=== PATIENT | male | born 1940 | race Caucasian/White ===

== ENCOUNTER 2017-01-26 03:58 | Emergency (ER) | payer MEDICARE, BC ==
[2017-01-26] MEDS ORDERED: Pantoprazole 40 MG Vial IVPUSH ONE (04:14)
[2017-01-26] MEDS ORDERED: Lidocaine 1% 30 ML SDV INJECT ONE (04:16)
[2017-01-26] MEDS ORDERED: Bacitracin Oint 1 GM U/D Packet TOP ONE (04:16)
[2017-01-26] MEDS ORDERED: Sodium Chloride 0.9% 1,000 ML IV ONE (04:16)
--- NOTE | 2017-01-26 04:24 | EDM.PDOC ---
ED HPI GENERAL MEDICAL PROBLEM - General Stated Complaint: IN BY AMBULANCE Time Seen by Provider: 01/26/17 04:00 Source of Information: Reports: Patient, EMS, Family History Limitations: Reports: No limitations - History of Present Illness INITIAL COMMENTS - FREE TEXT/NARRATIVE: This 76 yo male patient was brought to the ED by [facility] due to an episode of syncope. [place] of [place], vomited blood, and passed out on the floor. The patient has a history of GIST tumors, but has not had any episodes of GI bleeding in the past. When the patient had his syncope episode, the patient hit the left side of his head and has a laceration to the left eye. The patient's reports the patient was unresponsive after the fall. The patient reports his hemoglobin was checked yesterday and was 11.2. Onset: today, sudden Duration: Constant Location: Reports: head, face Quality: Reports: Ache, Dull Severity: moderate Improves with: Reports: None Worsens with: Reports: None Context: Reports: Other Associated Symptoms: Reports: nausea/vomiting, syncope - Related Data Allergies Allergy/AdvReac Type Severity Reaction Status Date / Time No Known Allergies Allergy Verified 01/26/17 04:31 Home Meds: Home Meds Acetaminophen [Tylenol] 2 tab PO Q6H PRN 11/26/15 [History] Amoxicillin [Amoxil] 1 cap PO ASDIRECTED 11/26/15 [History] Aspirin [Halfprin] 1 tab PO DAILY 11/26/15 [History] Carvedilol [Coreg] 12.5 mg PO BIDMEALS 11/26/15 [History] Imatinib [Gleevec] 2 tab PO BID 11/26/15 [History] Melatonin/Pyridoxine HCl (B6) [Melatonin 10 mg Tablet] 1 tab PO ASDIRECTED PRN 11/26/15 [History] Multivitamin [Multivitamins] 1 tab PO DAILY 11/26/15 [History] Pantoprazole [Protonix] 1 cap PO BID 11/26/15 [History] Psyllium [Metamucil] 30 ml PO BID 11/26/15 [History] Furosemide 20 mg PO ASDIRECTED 09/29/16 [History] Nitroglycerin [Nitrostat] 0.4 mg SL ASDIRECTED PRN 10/20/16 [History] Past Medical History HEENT History: Reports: Cataract, Impaired vision Other HEENT History: WEARS CORRECTIVE LENSES Cardiovascular History: Reports: Cardiomyopathy, High cholesterol, Hypertension Respiratory History: Reports: Sleep apnea, Other (see below) Other Respiratory History: PULMONARY NODULE Gastrointestinal History: Reports: Other (see below) Other Gastrointestinal History: GIST (gastrointestinal stromal tumor); Genitourinary History: Reports: BPH Musculoskeletal History: Reports: Arthritis Neurological History: Reports: None Psychiatric History: Reports: None Endocrine/Metabolic History: Reports: None Hematologic History: Reports: None Immunologic History: Reports: None Oncologic (Cancer) History: Reports: Esophageal, Other (see below) Other Oncologic History: gastric Dermatologic History: Reports: None - Past Surgical History HEENT Surgical History: Reports: Cataract surgery, Tonsillectomy GI Surgical History: Reports: Colonoscopy, EGD, Other (see below) Other GI Surgeries/Procedures: PARTIAL GASTRECTOMY FOR GIST Neurological Surgical History: Reports: C-Spine, Lumbar spine Other Neurological Surgeries/Procedures: C-SPINE C5-6; LUMBAR SPINE SURGERY L4-5 Musculoskeletal Surgical History: Reports: Carpal tunnel Other Musculoskeletal Surgeries/Procedures:: CARPAL TUNNEL RELEASE RIGHT Social & Family History - Tobacco Use Smoking Status *Q: Former Smoker Years of Tobacco use: 10 Used Tobacco, but Quit: Yes Month Tobacco Last Used: 03/07/1969 - Caffeine Use Caffeine Use: Reports: Coffee - Alcohol Use Days Per Week of Alcohol Use: 2 Number of Drinks Per Day: 2 Total Drinks Per Week: 4 - Recreational Drug Use Recreational Drug Use: No ED ROS GENERAL - Review of Systems Review Of Systems: ROS reveals no pertinent complaints other than HPI. ED EXAM, GENERAL - Physical Exam Exam: See Below Exam Limited By: No limitations General Appearance: alert, WD/WN, moderate distress, thin Eye Exam: bilateral eye: EOMI, PERRL Ears: normal external exam, normal canal, hearing grossly normal, normal TMs Nose: normal inspection, normal mucosa, no blood Throat/Mouth: Normal inspection, Normal lips, Normal teeth, Normal gums, Normal oropharynx, Normal voice, No airway compromise Head: other (laceration to the left lateral eye) Neck: normal inspection, supple, non-tender, full range of motion Respiratory/Chest: no respiratory distress, lungs clear, normal breath sounds, no accessory muscle use, chest non-tender Cardiovascular: normal peripheral pulses, regular rate, rhythm, no edema, no gallop, no JVD, no murmur, no rub GI/Abdominal: normal bowel sounds, soft, non tender, no organomegaly, no distention, no abnormal bruit, no mass (Male) Exam: Deferred Rectal (Males) Exam: Deferred Back Exam: normal inspection, full range of motion, NT Extremities: normal inspection, normal range of motion, non-tender, normal capillary refill, no pedal edema Neurological: alert, oriented, CN II-XII intact, normal cognition, normal gait, normal reflexes, no motor/sensory deficits Psychiatric: normal affect, normal mood Skin Exam: Warm, Dry, Intact, Normal color, No rash Lymphatic: no adenopathy ED GENERAL MEDICAL PROCEDURES - Laceration/Wound Repair Left Lateral Face Lac/wound length in cm: 2.0 Appearance: subcutaneous Distal NVT: neuro & vascular intact Anesthetic type: local Local anesthesia - Lidocaine (Xylocaine): 1% plain Local anesthetic volume: 4cc Skin prep: chlorhexidine (hibiciens) Exploration/Debridement/Repair: wound explored, in a bloodless field, explored to base, no foreign material found Closed with: sutures Suture size: 4-0 # of sutures: 7 Suture type: prolene, interrupted, simple Drain placement: No Sterile dressing applied: nurse Tetanus status addressed: Yes Complications: No Course - Vital Signs Last Recorded V/S: Last Vital Signs Temp 35.1 C L 01/26/17 03:58 Pulse 83 01/26/17 03:58 Resp 15 01/26/17 03:58 BP 115/59 L 01/26/17 03:58 Pulse Ox 94 L 01/26/17 03:58 - Orders/Labs/Meds Orders: Active Orders 24 hr Category Date Time Status EKG Documentation Completion [RC] URGENT Care 01/26/17 04:08 Ordered OCCULT BLD DIAGNOS Stat Lab 01/26/17 04:09 Ordered RED BLOOD CELLS LP [BBK] Stat Lab 01/26/17 04:27 Ordered TYPE AND SCREEN [BBK] Stat Lab 01/26/17 04:27 Ordered Sodium Chloride 0.9% [Normal Saline] 1,000 ml Med 01/26/17 04:16 Ordered IV .BOLUS Medication Orders Sodium Chloride (Normal Saline) 1,000 mls @ 500 mls/hr IV .BOLUS ONE Stop: 01/26/17 06:15 Last Admin: 01/26/17 04:24 Dose: 500 mls/hr Labs: Laboratory Tests 01/26/17 01/26/17 01/26/17 Range/Units 04:20 04:20 04:20 WBC 9.0 (5.0-10.0) 10^3/uL RBC 2.24 L (4.6-6.2) 10^6/uL Hgb 8.2 L (14.0-18.0) g/dL Hct 24.3 L (40.0-54.0) % MCV 108.5 H (80-100) fL MCH 36.6 H (27.0-34.0) pg MCHC 33.7 (33.0-35.0) g/dL Plt Count 224 (150-450) 10^3/uL Neut % (Auto) 75.3 H (42.2-75.2) % Lymph % (Auto) 15.5 L (20.5-50.1) % [place] % (Auto) 6.3 (2-8) % Eos % (Auto) 2.7 (1.0-3.0) % Baso % (Auto) 0.2 (0.0-1.0) % PT 11.2 (9.0-12.0) SEC INR 1.1 (0.9-1.2) Sodium 139 (135-145) mmol/L Potassium 4.3 (3.6-5.0) mmol/L Chloride 109 (101-111) mmol/L Carbon Dioxide 24.0 (21.0-31.0) mmol/L Anion Gap 10.3 BUN 24 H (7-18) mg/dL Creatinine 1.2 (0.6-1.3) mg/dL Est Cr Clr Drug Dosing TNP Estimated GFR (MDRD) 59 BUN/Creatinine Ratio 20.00 Glucose 164 H (74-105) mg/dL Calcium 7.7 L (8.4-10.2) mg/dl Total Bilirubin 0.6 (0.2-1.0) mg/dL AST 30 (10-42) IU/L ALT 20 (10-60) IU/L Alkaline Phosphatase 89 (42-121) IU/L Troponin I 0.02 (0.00-0.02) ng/ml Total Protein 4.9 L (6.7-8.2) g/dl Albumin 2.8 L (3.2-5.5) g/dl Globulin 2.1 Albumin/Globulin Ratio 1.33 Meds: Medications Generic Name Dose Route Start Last Admin Trade Name Margi PRN Reason Stop Dose Admin Sodium Chloride 1,000 mls @ 500 mls/hr 01/26/17 04:16 01/26/17 04:24 Normal Saline IV 01/26/17 06:15 500 mls/hr .BOLUS ONE Administration Discontinued Medications Generic Name Dose Route Start Last Admin Trade Name Margi PRN Reason Stop Dose Admin Bacitracin 1 dose 01/26/17 04:16 Bacitracin Oint 1 Gm TOP 01/26/17 04:17 ONETIME ONE Lidocaine HCl 30 ml 01/26/17 04:16 Xylocaine-Mpf 1% INJECT 01/26/17 04:17 ONETIME ONE Pantoprazole Sodium 80 mg 01/26/17 04:14 01/26/17 04:25 Protonix Iv IVPUSH 01/26/17 04:15 80 mg .BOLUS ONE Administration Departure - Departure Time of Disposition: 05:13 Disposition: DC/Tfer to Acute Hospital 02 Condition: poor Clinical Impression: GI bleed Qualifiers: GI bleed type/associated pathology: gastrointestinal hemorrhage with hematemesis Qualified Code(s): K92.0 - Hematemesis Forms: Interfacility Transfer EMTALA Care Plan Goals: Discussed the history, examination, lab, EKG and current cares with Dr. Hoang ( ED Provider with [facility] in [place]). Dr. Hoang accepted the patient for continued evaluation and further management. The patient will be transported by [facility]. - My Orders Last 24 Hours: My Active Orders 01/26/17 04:08 EKG Documentation Completion [RC] URGENT 01/26/17 04:09 OCCULT BLD DIAGNOS Stat 01/26/17 04:16 Sodium Chloride 0.9% [Normal Saline] 1,000 ml IV .BOLUS 01/26/17 04:27 RED BLOOD CELLS LP [BBK] Stat TYPE AND SCREEN [BBK] Stat - Assessment/Plan Last 24 Hours: My Active Orders 01/26/17 04:08 EKG Documentation Completion [RC] URGENT 01/26/17 04:09 OCCULT BLD DIAGNOS Stat 01/26/17 04:16 Sodium Chloride 0.9% [Normal Saline] 1,000 ml IV .BOLUS 01/26/17 04:27 RED BLOOD CELLS LP [BBK] Stat TYPE AND SCREEN [BBK] Stat
[2017-01-26 04:53] LABS: CHLORIDE,CL 109 mmol/L (101-111); SODIUM,NA 139 mmol/L (135-145)
--- NOTE | 2017-01-27 07:27 | EKG ---
01/26/2017- JENNIFER BLISS - EKG per my reading, shows sinus rhythm at a rate of [address] depression[address] [facility] /[id number]
[2017-01-27 09:24] VITALS: BP 133/62
== END 2017-01-26 06:06 ==
LOC: DL.ED 03:58
DX: K92.0 Hematemesis (principal); S01.81XA Laceration without foreign body of other part of head, initial encounter; E78.00 Pure hypercholesterolemia, unspecified; I10 Essential (primary) hypertension; M19.90 Unspecified osteoarthritis, unspecified site; Z98.49 Cataract extraction status, unspecified eye; Z98.890 Other specified postprocedural states; Z79.82 Long term (current) use of aspirin; Z79.899 Other long term (current) drug therapy; Z87.891 Personal history of nicotine dependence
CPT/HCPCS: 12011; 36415; 36430; 70450; 80053; 84484; 85025; 85610; 86850; 86900; 86901; 86920; 86922; 93005; 93010; 96360; 99284; 99285; C9113; J7030; P9016

== ENCOUNTER 2017-03-27 06:33 | Emergency (ER) | payer MEDICARE, BC ==
[2017-03-27 06:36] VITALS: BP 187/83
--- NOTE | 2017-03-27 06:43 | EDM.PDOC ---
<Delbert Seals M - Last Filed: 03/27/17 06:33> ED HPI GENERAL MEDICAL PROBLEM - General Chief Complaint: Neurological Problem Stated Complaint: COMING BY AMBULANCE Time Seen by Provider: 03/27/17 06:30 Source of Information: Reports: Patient, Family History Limitations: Reports: No limitations - History of Present Illness INITIAL COMMENTS - FREE TEXT/NARRATIVE: This 76 yo male patient was brought to the ED by [facility] due to increased confusion. The patient reports he is more confused this morning than normal for him. The patient's reports the patient was normal last night and was also normal at about 0230 this morning. When the patient got up this morning, he asked his when she changed sides of the bed and could not remember what he did yesterday. The patient has been seen at the [facility] for a GIST tumor. According to the patient's , the patient was in the [facility] in January 2017 and was advised that he had a blood clot. The patient had a filter placed, but was not started on any anticoagulant medications. The patient has recently started a new cancer medication which has caused his blood pressure to increase. 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 The patient was able to answer most questions, but took an increased amount of time to respond to questions. Onset: today Onset Date: 03/27/17 Onset Time: 15:00 Duration: Constant, Other Location: Reports: other Quality: Reports: Other Severity: moderate Improves with: Reports: None Worsens with: Reports: None Associated Symptoms: Reports: other - Related Data Allergies Allergy/AdvReac Type Severity Reaction Status Date / Time No Known Allergies Allergy Verified 03/27/17 06:36 Home Meds: Home Meds Acetaminophen [Tylenol] 2 tab PO Q6H PRN 11/26/15 [History] Aspirin [Halfprin] 1 tab PO DAILY 11/26/15 [History] Carvedilol [Coreg] 12.5 mg PO BIDMEALS 11/26/15 [History] Melatonin/Pyridoxine HCl (B6) [Melatonin 10 mg Tablet] 1 tab PO ASDIRECTED PRN 11/26/15 [History] Multivitamin [Multivitamins] 1 tab PO DAILY 11/26/15 [History] Pantoprazole [ProTONIX] 1 cap PO BID 11/26/15 [History] Psyllium [Metamucil] 30 ml PO BID 11/26/15 [History] Furosemide 20 mg PO 09/29/16 [History] Nitroglycerin [Nitrostat] 0.4 mg SL ASDIRECTED PRN 10/20/16 [History] SUNItinib Malate [Sutent] 50 mg PO DAILY 03/27/17 [History] Past Medical History HEENT History: Reports: Cataract, Impaired vision Other HEENT History: WEARS CORRECTIVE LENSES Cardiovascular History: Reports: Cardiomyopathy, High cholesterol, Hypertension Respiratory History: Reports: Sleep apnea, Other (see below) Other Respiratory History: PULMONARY NODULE Gastrointestinal History: Reports: Other (see below) Other Gastrointestinal History: GIST (gastrointestinal stromal tumor); Genitourinary History: Reports: BPH Musculoskeletal History: Reports: Arthritis Neurological History: Reports: None Psychiatric History: Reports: None Endocrine/Metabolic History: Reports: None Hematologic History: Reports: None Immunologic History: Reports: None Oncologic (Cancer) History: Reports: Esophageal, Other (see below) Other Oncologic History: gastric Dermatologic History: Reports: None - Past Surgical History HEENT Surgical History: Reports: Cataract surgery, Tonsillectomy GI Surgical History: Reports: Colonoscopy, EGD, Other (see below) Other GI Surgeries/Procedures: PARTIAL GASTRECTOMY FOR GIST Neurological Surgical History: Reports: C-Spine, Lumbar spine Other Neurological Surgeries/Procedures: C-SPINE C5-6; LUMBAR SPINE SURGERY L4-5 Musculoskeletal Surgical History: Reports: Carpal tunnel Other Musculoskeletal Surgeries/Procedures:: CARPAL TUNNEL RELEASE RIGHT Social & Family History - Family History Family Medical History: Noncontributory - Tobacco Use Smoking Status *Q: Former Smoker Years of Tobacco use: 10 Used Tobacco, but Quit: Yes Month Tobacco Last Used: 03/07/1969 Second Hand Smoke Exposure: Yes - Caffeine Use Caffeine Use: Reports: Coffee - Alcohol Use Days Per Week of Alcohol Use: 2 Number of Drinks Per Day: 2 Total Drinks Per Week: 4 - Recreational Drug Use Recreational Drug Use: No ED ROS GENERAL - Review of Systems Review Of Systems: ROS reveals no pertinent complaints other than HPI. ED EXAM, GENERAL - Physical Exam Exam: See Below Exam Limited By: No limitations General Appearance: alert, WD/WN, mild distress Eye Exam: bilateral eye: EOMI, normal inspection, PERRL Ears: normal external exam, normal canal, hearing grossly normal, normal TMs Nose: normal inspection, normal mucosa, no blood Throat/Mouth: Normal inspection, Normal lips, Normal teeth, Normal gums, Normal oropharynx, Normal voice, No airway compromise Head: atraumatic, normocephalic Neck: normal inspection, supple, non-tender, full range of motion Respiratory/Chest: no respiratory distress, lungs clear, normal breath sounds, no accessory muscle use, chest non-tender Cardiovascular: normal peripheral pulses, regular rate, rhythm, no edema, no gallop, no JVD, no murmur, no rub GI/Abdominal: normal bowel sounds, soft, non tender, no organomegaly, no distention, no abnormal bruit, no mass (Male) Exam: Deferred Rectal (Males) Exam: Deferred Back Exam: normal inspection, full range of motion, NT Extremities: normal inspection, normal range of motion, non-tender, normal capillary refill, no pedal edema Neurological: alert, oriented, CN II-XII intact, no motor/sensory deficits, confused, slow to respond Psychiatric: normal affect, normal mood Skin Exam: Warm, Dry, Intact, Normal color, No rash Lymphatic: no adenopathy Course - Vital Signs Last Recorded V/S: Last Vital Signs Temp 36.3 C 03/27/17 06:33 Pulse 56 L 03/27/17 06:33 Resp 20 03/27/17 06:33 BP 187/83 H 03/27/17 06:33 Pulse Ox 99 03/27/17 06:33 - Orders/Labs/Meds Orders: Active Orders 24 hr Category Date Time Status EKG Documentation Completion [RC] URGENT Care 03/27/17 06:33 Active Labs: Laboratory Tests 03/27/17 03/27/17 Range/Units 06:40 06:40 WBC 5.2 (5.0-10.0) 10^3/uL RBC 4.25 L (4.6-6.2) 10^6/uL Hgb 13.2 L (14.0-18.0) g/dL Hct 39.7 L (40.0-54.0) % MCV 93.4 (80-100) fL MCH 31.1 (27.0-34.0) pg MCHC 33.2 (33.0-35.0) g/dL Plt Count 269 (150-450) 10^3/uL Neut % (Auto) 47.4 (42.2-75.2) % Lymph % (Auto) 39.6 (20.5-50.1) % [place] % (Auto) 8.7 H (2-8) % Eos % (Auto) 3.7 H (1.0-3.0) % Baso % (Auto) 0.6 (0.0-1.0) % Sodium 139 (135-145) mmol/L Potassium 4.1 (3.6-5.0) mmol/L Chloride 105 (101-111) mmol/L Carbon Dioxide 28.0 (21.0-31.0) mmol/L Anion Gap 10.1 BUN 16 (7-18) mg/dL Creatinine 1.2 (0.6-1.3) mg/dL Est Cr Clr Drug Dosing TNP Estimated GFR (MDRD) 59 BUN/Creatinine Ratio 13.33 Glucose 107 H (74-105) mg/dL Calcium 8.8 (8.4-10.2) mg/dl Total Bilirubin 1.0 (0.2-1.0) mg/dL AST 26 (10-42) IU/L ALT 20 (10-60) IU/L Alkaline Phosphatase 89 (42-121) IU/L Troponin I 0.02 (0.00-0.02) ng/ml Total Protein 6.5 L (6.7-8.2) g/dl Albumin 3.8 (3.2-5.5) g/dl Globulin 2.7 Albumin/Globulin Ratio 1.41 Departure - Departure Disposition: DC/Tfer to [facility] 02 Clinical Impression: Hemorrhagic cerebrovascular accident (CVA), 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, Hypertension, uncontrolled, Bradycardia , History of gastrointestinal stromal tumor (GIST) Forms: ED Department Discharge, Interfacility Transfer EMTALA <Mac Olvera - Last Filed: 03/27/17 07:52> ED HPI GENERAL MEDICAL PROBLEM - General Source of Information: Reports: EMS, EMS notes reviewed, RN, RN notes reviewed EKG INTERPRETATION EKG Date: 03/27/17 Rhythm: other (SR) Rate (beats/min): 53 [place]: normal P-wave: present QRS: normal ST-T: normal QT: normal Comparison: NA - no prior EKG Course - Radiology Interpretation Free Text/Narrative:: CT Head: Possible evolving infarction in the posterior left parietal and occipital region; 4.3mm hyperdensity in the subdural space in the right frontal and parietal regions may represent an acute subdural hematoma; findings not present on CT Head from 01/2017, per Rad. report. CT Results Date: 03/27/17 - Re-Assessments/Exams Free Text/Narrative Re-Assessment/Exam: 03/27/17 07:[address] Pond via [employer], she advises to have the pt transferred without further intervention locally to the service of the hospitalist and she will consult and involve neurosurgery if needed. Departure - Departure Time of Disposition: 07:40 Condition: critical
[2017-03-27 07:06] LABS: CHLORIDE,CL 105 mmol/L (101-111); SODIUM,NA 139 mmol/L (135-145)
--- NOTE | 2017-04-17 14:28 | EKG ---
03/27/2017 - JENNIFER BLISS - EKG per my reading, shows sinus rhythm at a rate of 53. [facility] /[id number]
== END 2017-03-27 08:05 ==
LOC: DL.ED 06:33
DX: I63.9 Cerebral infarction, unspecified (principal); I10 Essential (primary) hypertension; R00.1 Bradycardia, unspecified; E78.00 Pure hypercholesterolemia, unspecified; N40.0 Benign prostatic hyperplasia without lower urinary tract symptoms; M19.90 Unspecified osteoarthritis, unspecified site; Z88.2 Allergy status to sulfonamides; Z79.899 Other long term (current) drug therapy; Z90.49 Acquired absence of other specified parts of digestive tract; Z98.890 Other specified postprocedural states; Z98.49 Cataract extraction status, unspecified eye
CPT/HCPCS: 36415; 70450; 80053; 84484; 85025; 93005; 93010; 99284; 99285

== ENCOUNTER 2019-03-26 11:02 | Emergency (ER) | payer MEDICARE, BC ==
[2019-03-26 11:08] VITALS: BP 124/85
--- NOTE | 2019-03-26 11:15 | EDM.PDOC ---
ED HPI GENERAL MEDICAL PROBLEM - General Chief Complaint: General Stated Complaint: AMBULANCE Time Seen by Provider: 03/26/19 11:15 Source of Information: Reports: Patient, Family, Old Records, RN, RN Notes Reviewed History Limitations: Reports: No Limitations - History of Present Illness INITIAL COMMENTS - FREE TEXT/NARRATIVE: Pt arrives from a local pharmacy by ambulance with c/o an near syncopal episode while waiting for a prescription. 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 He denies chest pain, edema, or orthopnea. Pt reports progressively worsening shortness of breath, fatigue, and generalized weakness. He denies bloody stools, black, tarry, or melanotic stools. He was recently admitted at [facility] and states that his Coreg was increased from 6.25mg BID to 25mg BID. He denies any other recent medication changes. Duration: Chronic, Recurring - Related Data Allergies Allergy/AdvReac Type Severity Reaction Status Date / Time No Known Allergies Allergy Verified 03/26/19 11:03 Home Meds: Home Meds Acetaminophen [Tylenol] 2 tab PO Q6H PRN 11/26/15 [History] Aspirin [Halfprin] 1 tab PO DAILY 11/26/15 [History] Carvedilol [Coreg] 25 mg PO BIDMEALS 11/26/15 [History] Melatonin/Pyridoxine HCl (B6) [Melatonin 10 mg Tablet] 1 tab PO ASDIRECTED PRN 11/26/15 [History] Multivitamin [Multivitamins] 1 tab PO DAILY 11/26/15 [History] Pantoprazole [ProTONIX] 1 cap PO DAILY 11/26/15 [History] Psyllium [Metamucil] 30 ml PO BID 11/26/15 [History] Furosemide 40 mg PO DAILY 09/29/16 [History] Nitroglycerin [Nitrostat] 0.4 mg SL ASDIRECTED PRN 10/20/16 [History] SUNItinib Malate [Sutent] 50 mg PO DAILY 03/27/17 [History] ALPRAZolam [Xanax] 0.25 mg PO TID PRN 03/26/19 [History] Potassium Chloride [Klor-Con 10] 10 meq PO DAILY 03/26/19 [History] Sennosides [Senna] 8.6 mg PO BID 03/26/19 [History] Warfarin [Coumadin] 2.5 mg PO ASDIRECTED 03/26/19 [History] atorvaSTATin Calcium [Lipitor] 40 mg PO DAILY 03/26/19 [History] Past Medical History HEENT History: Reports: Cataract, Impaired Vision Other HEENT History: WEARS CORRECTIVE LENSES Cardiovascular History: Reports: Afib, Cardiomyopathy, Heart Failure, High Cholesterol, Hypertension, SOB on Exertion Respiratory History: Reports: Sleep Apnea, Other (See Below) Other Respiratory History: periods fast breathing happen randomly throughout the day and night. Gastrointestinal History: Reports: Other (See Below) Other Gastrointestinal History: GIST (gastrointestinal stromal tumor); Genitourinary History: Reports: BPH Musculoskeletal History: Reports: Arthritis Neurological History: Reports: None Psychiatric History: Reports: None Endocrine/Metabolic History: Reports: None Hematologic History: Reports: None Immunologic History: Reports: None Oncologic (Cancer) History: Reports: Esophageal, Other (See Below) Other Oncologic History: Gist Dermatologic History: Reports: None - Past Surgical History HEENT Surgical History: Reports: Cataract Surgery, Tonsillectomy GI Surgical History: Reports: Colonoscopy, EGD, Other (See Below) Neurological Surgical History: Reports: C-Spine, Lumbar Spine Musculoskeletal Surgical History: Reports: Carpal Tunnel Social & Family History - Family History Family Medical History: Noncontributory - Tobacco Use Smoking Status *Q: Never Smoker - Caffeine Use Caffeine Use: Reports: Coffee - Recreational Drug Use Recreational Drug Use: No - Living Situation & Occupation Living situation: Reports: Occupation: Retired ED ROS GENERAL - Review of Systems Review Of Systems: ROS reveals no pertinent complaints other than HPI. ED EXAM, GENERAL - Physical Exam Exam: See Below Exam Limited By: No Limitations General Appearance: Alert, No Apparent Distress, Anxious, Other (Chronically ill , anxious, elderly male.) Eye Exam: Bilateral Eye: EOMI, Normal Inspection, PERRL Ears: Hearing Grossly Normal Nose: Normal Inspection, Normal Mucosa, No Blood Throat/Mouth: Normal Inspection, Normal Lips, Normal Teeth, Normal Gums, Normal Oropharynx, Normal Voice, No Airway Compromise Head: Atraumatic, Normocephalic Neck: Normal Inspection, Supple, Non-Tender, Full Range of Motion. No: Lymphadenopathy (L), Lymphadenopathy (R) Respiratory/Chest: No Respiratory Distress, Lungs Clear, Normal Breath Sounds, No Accessory Muscle Use, Chest Non-Tender Cardiovascular: Irregularly Irregular GI/Abdominal: Normal Bowel Sounds, Soft, Non-Tender, No Organomegaly, No Distention, No Abnormal Bruit (Male) Exam: Deferred Rectal (Males) Exam: Deferred Back Exam: Normal Inspection Extremities: Normal Inspection, Normal Range of Motion, Non-Tender, Normal Capillary Refill, No Pedal Edema Neurological: Alert, Oriented, CN II-XII Intact, Normal Cognition, No Motor/ Sensory Deficits Psychiatric: Anxious Skin Exam: Warm, Dry, Intact, No Rash, Pallor EKG INTERPRETATION EKG Date: 03/26/19 Time: 11:44 Rhythm: A-Fib Rate (Beats/Min): 95 [place]: RAD-Right [place] Deviation (borderline) P-Wave: Absent QRS: Normal ST-T: Other (nonspecific repol. abnormality) QT: Normal Comparison: No Change Course - Vital Signs Last Recorded V/S: Last Vital Signs Temp 35.8 C 03/26/19 11:05 Pulse 92 03/26/19 11:05 Resp 20 03/26/19 11:05 BP 124/85 03/26/19 11:05 Pulse Ox 100 03/26/19 11:05 Orthostatic Blood Pressure [ 90/64 Standing] Orthostatic Blood Pressure [ 95/67 Sitting] Orthostatic Blood Pressure [ 111/72 Supine] Pt symptomatic with severe lightheadedness. BP then briefly dropped to 80/55. - Orders/Labs/Meds Orders: Active Orders 24 hr Category Date Time Status EKG 12 Lead [EKG Documentation Completion] [RC] STAT Care 03/26/19 11:42 Active Orthostatic Vital Signs [RC] ASDIRECTED Care 03/26/19 11:43 Active Labs: Laboratory Tests 03/26/19 03/26/19 03/26/19 Range/Units 11:46 11:46 11:46 WBC 9.6 (5.0-10.0) 10^3/uL RBC 4.59 L (4.6-6.2) 10^6/uL Hgb 13.9 L (14.0-18.0) g/dL Hct 42.0 (40.0-54.0) % MCV 91.5 (80-100) fL MCH 30.3 (27.0-34.0) pg MCHC 33.1 (33.0-35.0) g/dL Plt Count 345 D (150-450) 10^3/uL Neut % (Auto) 66.4 (42.2-75.2) % Lymph % (Auto) 21.6 (20.5-50.1) % [place] % (Auto) 9.9 H (2-8) % Eos % (Auto) 1.8 (1.0-3.0) % Baso % (Auto) 0.3 (0.0-1.0) % PT 17.9 H D (9.0-12.0) SEC INR 1.8 H (0.9-1.2) Sodium 136 (135-145) mmol/L Potassium 4.5 (3.6-5.0) mmol/L Chloride 100 L (101-111) mmol/L Carbon Dioxide 23.0 (21.0-31.0) mmol/L Anion Gap 17.5 BUN 23 H (7-18) mg/dL Creatinine 1.3 (0.6-1.3) mg/dL Est Cr Clr Drug Dosing 49.88 mL/min Estimated GFR (MDRD) 53 BUN/Creatinine Ratio 17.69 Glucose 102 (74-105) mg/dL Calcium 8.8 (8.4-10.2) mg/dl Total Bilirubin 2.3 H (0.2-1.0) mg/dL AST 40 (10-42) IU/L ALT 39 (10-60) IU/L Alkaline Phosphatase 102 (42-121) IU/L Troponin I 0.04 H* (0.00-0.02) ng/ml B-Natriuretic Peptide 1240 H (0-100) pg/ml Total Protein 7.2 (6.7-8.2) g/dl Albumin 3.6 (3.2-5.5) g/dl Globulin 3.6 Albumin/Globulin Ratio 1.00 - Radiology Interpretation Free Text/Narrative:: Chest XR: no acute process per Rad. report. - Re-Assessments/Exams Free Text/Narrative Re-Assessment/Exam: 03/26/19 13:15 Pt refuses to be transferred to [facility] due to a "bad past experience". Pt requests transfer only to [facility] in [place]. Departure - Departure Time of Disposition: 13:10 Disposition: DC/Tfer to Acute Hospital 02 Condition: Serious Clinical Impression: CHF, Congestive heart failure, Elevated troponin, Orthostatic hypotension, History of malignant gastrointestinal stromal tumor (GIST), Generalized weakness , Anxiety about health Syncope Qualifiers: Syncope type: unspecified Qualified Code(s): R55 - Syncope and collapse - Discharge Information *PRESCRIPTION DRUG MONITORING PROGRAM REVIEWED*: No *COPY OF PRESCRIPTION DRUG MONITORING REPORT IN PATIENT MAGDALENA: No Forms: ED Department Discharge, Interfacility Transfer EMTALA - My Orders Last 24 Hours: My Active Orders 03/26/19 11:42 EKG 12 Lead [EKG Documentation Completion] [RC] STAT 03/26/19 11:43 Orthostatic Vital Signs [RC] ASDIRECTED - Assessment/Plan Last 24 Hours: My Active Orders 03/26/19 11:42 EKG 12 Lead [EKG Documentation Completion] [RC] STAT 03/26/19 11:43 Orthostatic Vital Signs [RC] ASDIRECTED
[2019-03-26 12:16] LABS: ANION GAP 17.5
--- NOTE | 2019-03-26 12:35 | CR ---
Clinical history: 78-year-old male shortness of breath and near syncopal episode. Interpretation: *No acute new cardiopulmonary abnormality since comparable AP film 29 September 2016. Chronic mild left ventricular configuration space with external loss prevention research engineer leads. No cephalization of vascular flow, new alveolar edema or dependent pleural fluid accumulation. No new lung mass, hilar lymphadenopathy or focal lobar pneumonia. Orthopedic replacement right shoulder. No pneumothorax.
== END 2019-03-26 14:05 ==
LOC: DL.ED 11:02
DX: I95.1 Orthostatic hypotension (principal); I48.91 Unspecified atrial fibrillation; I11.0 Hypertensive heart disease with heart failure; I50.9 Heart failure, unspecified; R79.89 Other specified abnormal findings of blood chemistry; R53.1 Weakness; F41.9 Anxiety disorder, unspecified; E78.00 Pure hypercholesterolemia, unspecified; Z79.82 Long term (current) use of aspirin; Z79.899 Other long term (current) drug therapy; Z85.09 Personal history of malignant neoplasm of other digestive organs
CPT/HCPCS: 36415; 71045; 80053; 83880; 84484; 85025; 85610; 93005; 99285-25

== ENCOUNTER 2019-04-11 07:41 | Emergency (ER) | payer MEDICARE, BC ==
[2019-04-11 07:48] VITALS: BP 133/96; PULSE 135
--- NOTE | 2019-04-11 08:10 | EDM.PDOC ---
ED HPI GENERAL MEDICAL PROBLEM - General Chief Complaint: General Stated Complaint: AMBULNACE Time Seen by Provider: 04/11/19 07:50 Source of Information: Reports: Patient, Family () History Limitations: Reports: No Limitations - History of Present Illness INITIAL COMMENTS - FREE TEXT/NARRATIVE: This 78 yo male patient was brought to the ED by [facility] due to increased weakness and increased shortness of breath. The patient reports he has had increased weakness since he got out of the hospital in [place]. The patient has a history of a GIST Tumor ( reports the tumor is inoperable), A. fib, CHF, HTN and anxiety. The patient's reports the specialists in [place] report that there is nothing they can do for his weakness or difficulties breathing. The patient reports that he is currently too weak to eat. The patient reports he has been able to get up, but unable to do anything else throughout the day. The patient was seen in the [facility] on Tuesday by Rayn Nash and was started on a different Anxiety medication. Onset: Gradual Duration: Week(s):, Constant, Getting Worse Location: Reports: Generalized Quality: Reports: Other Severity: Severe Improves with: Reports: None Worsens with: Reports: None Context: Reports: Other Associated Symptoms: Reports: Shortness of Breath, Weakness - Related Data Allergies Allergy/AdvReac Type Severity Reaction Status Date / Time No Known Allergies Allergy Verified 03/26/19 11:03 Home Meds: Home Meds Acetaminophen [Tylenol] 2 tab PO Q6H PRN 11/26/15 [History] Aspirin [Halfprin] 1 tab PO DAILY 11/26/15 [History] Carvedilol [Coreg] 25 mg PO BIDMEALS 11/26/15 [History] Melatonin/Pyridoxine HCl (B6) [Melatonin 10 mg Tablet] 1 tab PO ASDIRECTED PRN 11/26/15 [History] Multivitamin [Multivitamins] 1 tab PO DAILY 11/26/15 [History] Pantoprazole [ProTONIX] 1 cap PO DAILY 11/26/15 [History] Psyllium [Metamucil] 30 ml PO BID 11/26/15 [History] Furosemide 40 mg PO DAILY 09/29/16 [History] Nitroglycerin [Nitrostat] 0.4 mg SL ASDIRECTED PRN 10/20/16 [History] SUNItinib Malate [Sutent] 50 mg PO DAILY 03/27/17 [History] ALPRAZolam [Xanax] 0.25 mg PO TID PRN 03/26/19 [History] Potassium Chloride [Klor-Con 10] 10 meq PO DAILY 03/26/19 [History] Sennosides [Senna] 8.6 mg PO BID 03/26/19 [History] Warfarin [Coumadin] 2.5 mg PO ASDIRECTED 03/26/19 [History] atorvaSTATin Calcium [Lipitor] 40 mg PO DAILY 03/26/19 [History] Past Medical History HEENT History: Reports: Cataract, Impaired Vision Other HEENT History: WEARS CORRECTIVE LENSES Cardiovascular History: Reports: Afib, Cardiomyopathy, Heart Failure, High Cholesterol, Hypertension, SOB on Exertion Respiratory History: Reports: Sleep Apnea, Other (See Below) Other Respiratory History: periods fast breathing happen randomly throughout the day and night. Gastrointestinal History: Reports: Other (See Below) Other Gastrointestinal History: GIST (gastrointestinal stromal tumor); Genitourinary History: Reports: BPH Musculoskeletal History: Reports: Arthritis Neurological History: Reports: None Psychiatric History: Reports: None Endocrine/Metabolic History: Reports: None Hematologic History: Reports: None Immunologic History: Reports: None Oncologic (Cancer) History: Reports: Esophageal, Other (See Below) Other Oncologic History: Gist Dermatologic History: Reports: None - Past Surgical History HEENT Surgical History: Reports: Cataract Surgery, Tonsillectomy GI Surgical History: Reports: Colonoscopy, EGD, Other (See Below) Neurological Surgical History: Reports: C-Spine, Lumbar Spine Musculoskeletal Surgical History: Reports: Carpal Tunnel Social & Family History - Family History Family Medical History: Noncontributory - Tobacco Use Smoking Status *Q: Never Smoker Second Hand Smoke Exposure: No - Caffeine Use Caffeine Use: Reports: Coffee - Recreational Drug Use Recreational Drug Use: No - Living Situation & Occupation Living situation: Reports: Occupation: Retired ED ROS GENERAL - Review of Systems Review Of Systems: ROS reveals no pertinent complaints other than HPI. ED EXAM, GENERAL - Physical Exam Exam: See Below Exam Limited By: No Limitations General Appearance: Alert, WD/WN, Moderate Distress Eye Exam: Bilateral Eye: EOMI, Normal Inspection, PERRL Ears: Normal External Exam, Normal Canal, Hearing Grossly Normal, Normal TMs Nose: Normal Inspection, Normal Mucosa, No Blood Throat/Mouth: Normal Inspection, Normal Lips, Normal Teeth, Normal Gums, Normal Oropharynx, Normal Voice, No Airway Compromise Head: Atraumatic, Normocephalic Neck: Normal Inspection, Supple, Non-Tender, Full Range of Motion Respiratory/Chest: No Respiratory Distress, Lungs Clear, Normal Breath Sounds, No Accessory Muscle Use, Chest Non-Tender Cardiovascular: Tachycardia, Irregularly Irregular GI/Abdominal: Normal Bowel Sounds, Soft, Non-Tender, No Organomegaly, No Distention, No Abnormal Bruit, No Mass (Male) Exam: Deferred Rectal (Males) Exam: Deferred Back Exam: Normal Inspection, Full Range of Motion, NT Extremities: Normal Inspection, Normal Range of Motion, Non-Tender, Normal Capillary Refill, No Pedal Edema Neurological: Alert, Oriented, CN II-XII Intact, Normal Cognition Psychiatric: Anxious Skin Exam: Warm, Dry, Intact, Normal Color, No Rash Lymphatic: No Adenopathy Course - Vital Signs Last Recorded V/S: Last Vital Signs Temp 35.6 C 04/11/19 07:41 Pulse 135 H 04/11/19 07:41 Resp 16 04/11/19 07:41 BP 133/96 H 04/11/19 07:41 Pulse Ox 99 04/11/19 07:41 - Orders/Labs/Meds Orders: Active Orders 24 hr Category Date Time Status EKG Documentation Completion [RC] URGENT Care 04/11/19 07:35 Active Chest 1V Frontal [CR] Urgent Exams 04/11/19 07:35 Taken Labs: Laboratory Tests 04/11/19 04/11/19 04/11/19 Range/Units 07:50 07:50 07:50 WBC 10.8 H (5.0-10.0) 10^3/uL RBC 5.09 (4.6-6.2) 10^6/uL Hgb 15.0 (14.0-18.0) g/dL Hct 44.4 (40.0-54.0) % MCV 87.2 D (80-100) fL MCH 29.5 (27.0-34.0) pg MCHC 33.8 (33.0-35.0) g/dL Plt Count 378 (150-450) 10^3/uL Neut % (Auto) 73.0 (42.2-75.2) % Lymph % (Auto) 15.3 L (20.5-50.1) % Lane % (Auto) 10.8 H (2-8) % Eos % (Auto) 0.6 L (1.0-3.0) % Baso % (Auto) 0.3 (0.0-1.0) % PT 32.6 H D (9.0-12.0) SEC INR 3.4 H (0.9-1.2) Sodium (135-145) mmol/L Potassium (3.6-5.0) mmol/L Chloride (101-111) mmol/L Carbon Dioxide (21.0-31.0) mmol/L Anion Gap BUN (7-18) mg/dL Creatinine (0.6-1.3) mg/dL Est Cr Clr Drug Dosing Estimated GFR (MDRD) BUN/Creatinine Ratio Glucose (74-105) mg/dL Calcium (8.4-10.2) mg/dl Total Bilirubin (0.2-1.0) mg/dL AST (10-42) IU/L ALT (10-60) IU/L Alkaline Phosphatase (42-121) IU/L Troponin I (0.00-0.02) ng/ml B-Natriuretic Peptide 1360 H (0-100) pg/ml Total Protein (6.7-8.2) g/dl Albumin (3.2-5.5) g/dl Globulin Albumin/Globulin Ratio 04/11/19 Range/Units 07:50 WBC (5.0-10.0) 10^3/uL RBC (4.6-6.2) 10^6/uL Hgb (14.0-18.0) g/dL Hct (40.0-54.0) % MCV (80-100) fL MCH (27.0-34.0) pg MCHC (33.0-35.0) g/dL Plt Count (150-450) 10^3/uL Neut % (Auto) (42.2-75.2) % Lymph % (Auto) (20.5-50.1) % Lane % (Auto) (2-8) % Eos % (Auto) (1.0-3.0) % Baso % (Auto) (0.0-1.0) % PT (9.0-12.0) SEC INR (0.9-1.2) Sodium 134 L (135-145) mmol/L Potassium 4.5 (3.6-5.0) mmol/L Chloride 104 (101-111) mmol/L Carbon Dioxide 16.0 L (21.0-31.0) mmol/L Anion Gap 18.5 BUN 33 H (7-18) mg/dL Creatinine 1.5 H (0.6-1.3) mg/dL Est Cr Clr Drug Dosing TNP Estimated GFR (MDRD) 45 BUN/Creatinine Ratio 22.00 Glucose 122 H (74-105) mg/dL Calcium 9.0 (8.4-10.2) mg/dl Total Bilirubin 3.2 H (0.2-1.0) mg/dL AST 87 H (10-42) IU/L ALT 65 H (10-60) IU/L Alkaline Phosphatase 82 (42-121) IU/L Troponin I 0.05 H* (0.00-0.02) ng/ml B-Natriuretic Peptide (0-100) pg/ml Total Protein 7.4 (6.7-8.2) g/dl Albumin 3.8 (3.2-5.5) g/dl Globulin 3.6 Albumin/Globulin Ratio 1.06 Departure - Departure Time of Disposition: 08:54 Disposition: DC/Tfer to [facility] 02 Condition: Fair Clinical Impression: Generalized weakness, Elevated troponin A-fib Qualifiers: Atrial fibrillation type: chronic Qualified Code(s): I48.2 - Chronic atrial fibrillation - Discharge Information *PRESCRIPTION DRUG MONITORING PROGRAM REVIEWED*: Not Applicable *COPY OF PRESCRIPTION DRUG MONITORING REPORT IN PATIENT MAGDALENA: Not Applicable Forms: Interfacility Transfer EMTALA Care Plan Goals: Discussed the patient's history, examination, lab, EKG and chest x-ray results with Dr. Soto (Hospitalist with [facility] in [place]). Dr. Soto accepted the patient for continued evaluation and further management. The patient will be transported by [facility]. - My Orders Last 24 Hours: My Active Orders 04/11/19 07:35 EKG Documentation Completion [RC] URGENT Chest 1V Frontal [CR] Urgent - Assessment/Plan Last 24 Hours: My Active Orders 04/11/19 07:35 EKG Documentation Completion [RC] URGENT Chest 1V Frontal [CR] Urgent
[2019-04-11 08:17] LABS: ANION GAP 18.5; CHLORIDE,CL 104 mmol/L (101-111); SODIUM,NA 134 mmol/L (135-145)
== END 2019-04-11 10:47 ==
LOC: DL.ED 07:41
DX: R53.1 Weakness (principal); I48.2 Chronic atrial fibrillation; I11.0 Hypertensive heart disease with heart failure; I50.9 Heart failure, unspecified; R79.89 Other specified abnormal findings of blood chemistry; E78.00 Pure hypercholesterolemia, unspecified; Z79.899 Other long term (current) drug therapy; Z79.82 Long term (current) use of aspirin; Z79.01 Long term (current) use of anticoagulants
CPT/HCPCS: 36415; 71045; 80053; 83880; 84484; 85025; 85610; 93005; 99284; 99285-25

== ENCOUNTER 2020-12-11 11:26 | Emergency (ER) | payer MEDICARE, BC ==
[2020-12-11 10:09] VITALS: BP 106/64; PULSE 105
--- NOTE | 2020-12-11 10:43 | EDM.PDOC ---
ED HPI GENERAL MEDICAL PROBLEM - General Chief Complaint: General Time Seen by Provider: 12/11/20 10:37 Source of Information: Reports: Patient, RN History Limitations: Reports: No Limitations - History of Present Illness INITIAL COMMENTS - FREE TEXT/NARRATIVE: 80 y/o M c/o weakness since last night. Pt states he has had several episodes of diarrhea since last eveing about 1 am. Pt also c/o L leg cramps and uncontrollable movements since Tuesday. 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 Gist tumor on stomach was removed ten years ago. No reported changes to remaining tumor. other hx of CVA 2 + years ago and heart disease. Is on warfarin last INR a week ago was 2.8. Is on Digoxin. Denies weaver, dizziness, lightheadedness, vision prob, cp, abd pn, pelvic pain, blood in stool, difficulty voiding, pedal edema. Onset: Sudden, Other (last night at 1 am) Location: Reports: Generalized Improves with: Reports: Other (sitting or lying flat) Worsens with: Reports: Movement (standing, ambulating) Associated Symptoms: Reports: No Other Symptoms - Related Data Allergies Allergy/AdvReac Type Severity Reaction Status Date / Time No Known Allergies Allergy Verified 12/11/20 10:22 Home Meds: Home Meds Acetaminophen [Tylenol] 2 tab PO Q6H PRN 11/26/15 [History] Aspirin [Halfprin] 1 tab PO DAILY 11/26/15 [History] Melatonin/Pyridoxine HCl (B6) [Melatonin 10 mg Tablet] 1 tab PO ASDIRECTED PRN 11/26/15 [History] Multivitamin [Multivitamins] 1 tab PO DAILY 11/26/15 [History] Pantoprazole [ProTONIX] 1 cap PO DAILY 11/26/15 [History] Psyllium [Metamucil] 30 ml PO BID 11/26/15 [History] carvediloL [Coreg] 25 mg PO BIDMEALS 11/26/15 [History] Furosemide 40 mg PO DAILY 09/29/16 [History] Nitroglycerin [Nitrostat] 0.4 mg SL ASDIRECTED PRN 10/20/16 [History] SUNItinib Malate [Sutent] 50 mg PO DAILY 03/27/17 [History] ALPRAZolam [Xanax] 0.25 mg PO TID PRN 03/26/19 [History] Potassium Chloride [Klor-Con 10] 10 meq PO DAILY 03/26/19 [History] Sennosides [Senna] 8.6 mg PO BID 03/26/19 [History] Warfarin [Coumadin] 2.5 mg PO ASDIRECTED 03/26/19 [History] atorvaSTATin Calcium [Lipitor] 40 mg PO DAILY 03/26/19 [History] Past Medical History HEENT History: Reports: Cataract, Impaired Vision Other HEENT History: WEARS CORRECTIVE LENSES Cardiovascular History: Reports: Afib, Blood Clots/VTE/DVT, Cardiomyopathy, Heart Failure, High Cholesterol, Hypertension, SOB on Exertion Respiratory History: Reports: Sleep Apnea, Other (See Below) Other Respiratory History: periods fast breathing happen randomly throughout the day and night. Gastrointestinal History: Reports: Other (See Below) Other Gastrointestinal History: GIST (gastrointestinal stromal tumor); Genitourinary History: Reports: BPH Musculoskeletal History: Reports: Arthritis Neurological History: Reports: Other (See Below) Other Neuro History: bleed in brain Psychiatric History: Reports: Anxiety Endocrine/Metabolic History: Reports: None Hematologic History: Reports: None Immunologic History: Reports: None Oncologic (Cancer) History: Reports: Esophageal, Other (See Below) Other Oncologic History: Gist Dermatologic History: Reports: None - Infectious Disease History Infectious Disease History: Reports: None - Past Surgical History HEENT Surgical History: Reports: Cataract Surgery, Tonsillectomy GI Surgical History: Reports: Colonoscopy, EGD, Other (See Below) Other GI Surgeries/Procedures: PARTIAL GASTRECTOMY FOR GIST Neurological Surgical History: Reports: C-Spine, Lumbar Spine Other Neurological Surgeries/Procedures: C-SPINE C5-6; LUMBAR SPINE SURGERY L4-5 Musculoskeletal Surgical History: Reports: Carpal Tunnel Other Musculoskeletal Surgeries/Procedures:: CARPAL TUNNEL RELEASE RIGHT Social & Family History - Family History Family Medical History: No Pertinent Family History - Tobacco Use Tobacco Use Status *Q: Never Tobacco User Second Hand Smoke Exposure: No - Caffeine Use Caffeine Use: Reports: None - Recreational Drug Use Recreational Drug Use: No - Living Situation & Occupation Living situation: Reports: Occupation: Retired ED ROS GENERAL - Review of Systems Review Of Systems: Comprehensive ROS is negative, except as noted in HPI. ED EXAM, GENERAL - Physical Exam Exam: See Below Exam Limited By: No Limitations General Appearance: Alert, WD/WN, No Apparent Distress Eye Exam: Bilateral Eye: PERRL Ears: Normal External Exam, Normal Canal, Hearing Grossly Normal, Normal TMs Ear Exam: Bilateral Ear: Auricle Normal, Canal Normal, TM normal Nose: Normal Inspection, Normal Mucosa, No Blood Throat/Mouth: Normal Inspection, Normal Lips, Normal Teeth, Normal Gums, Normal Oropharynx, Normal Voice, No Airway Compromise, Other (tongue dry and furrowed) Head: Atraumatic, Normocephalic Neck: Normal Inspection, Supple, Non-Tender, Full Range of Motion Respiratory/Chest: No Respiratory Distress, Lungs Clear, Normal Breath Sounds, N o Accessory Muscle Use, Chest Non-Tender Cardiovascular: No Edema, No Gallop (weak pedal pulse L leg), No JVD, No Murmur, Tachycardia, Irregularly Irregular, Other GI/Abdominal: Normal Bowel Sounds, Soft, Non-Tender, No Distention (Male) Exam: No Hernia Rectal (Males) Exam: Bloody Stool Back Exam: Normal Inspection Extremities: Normal Inspection, No Pedal Edema, Other (left calf tender to palpation) Neurological: Alert, Oriented, CN II-XII Intact, Normal Cognition, Normal Gait, Normal Reflexes, No Motor/Sensory Deficits Psychiatric: Normal Affect, Normal Mood Skin Exam: Warm, Dry, Intact, Other (diffusley pale throughout) Course - Vital Signs Last Recorded V/S: Last Vital Signs Temp 96.9 F 12/11/20 10:04 Pulse 105 H 12/11/20 10:04 Resp 18 12/11/20 10:04 BP 106/64 12/11/20 10:04 Pulse Ox 96 12/11/20 10:04 Orthostatic Blood Pressure [ 118/101 Standing] Orthostatic Blood Pressure [ 101/57 Sitting] Orthostatic Blood Pressure [ 106/64 Supine] - Orders/Labs/Meds Orders: Active Orders 24 hr Category Date Time Status EKG Documentation Completion [RC] STAT Care 12/11/20 09:57 Active Sodium Chloride 0.9% [Normal Saline] 1,000 ml Med 12/11/20 11:17 Active IV .BOLUS Medication Orders Sodium Chloride (Normal Saline) 1,000 mls @ 125 mls/hr IV .BOLUS ONE Stop: 12/11/20 19:16 Last Infusion: 12/11/20 11:35 Dose: 500 mls/hr Documented by: Admin: 12/11/20 11:24 Dose: 125 mls/hr Documented by: ELIU Labs: Laboratory Tests 12/11/20 12/11/20 12/11/20 Range/Units 10:15 10:15 10:15 WBC 8.5 (5.0-10.0) 10^3/uL RBC 2.86 L (4.6-6.2) 10^6/uL Hgb 7.8 L D (14.0-18.0) g/dL Hct 24.5 L (40.0-54.0) % MCV 85.7 (80-100) fL MCH 27.3 (27.0-34.0) pg MCHC 31.8 L (33.0-35.0) g/dL Plt Count 308 (150-450) 10^3/uL Neut % (Auto) 73.8 (42.2-75.2) % Lymph % (Auto) 18.9 L (20.5-50.1) % [place] % (Auto) 6.3 (2-8) % Eos % (Auto) 0.6 L (1.0-3.0) % Baso % (Auto) 0.4 (0.0-1.0) % PT 37.4 H (9.0-12.0) SEC INR 4.0 H (0.9-1.2) D-Dimer, Quantitative (0-400) ng/mL Sodium 138 (136-145) mmol/L Potassium 4.3 (3.5-5.1) mmol/L Chloride 105 (98-107) mmol/L Carbon Dioxide 26 (21-32) mmol/L Anion Gap 11.3 (7-13) mEq/L BUN 34 H (7-18) mg/dL Creatinine 1.46 H (0.70-1.30) mg/dL Est Cr Clr Drug Dosing 42.98 mL/min Estimated GFR (MDRD) 46 BUN/Creatinine Ratio 23.3 (No establ ref range) Glucose 199 H (74-99) mg/dL Calcium 8.4 L (8.5-10.1) mg/dL Magnesium 1.9 (1.8-2.4) mg/dL Total Bilirubin 0.6 (0.2-1.0) mg/dL AST 20 (15-37) U/L ALT 23 (16-63) U/L Alkaline Phosphatase 92 (46-116) U/L Troponin I 0.023 (0.000-0.056) ng/mL C-Reactive Protein 1.7 H (0.0-0.9) mg/dL Total Protein 5.8 L (6.4-8.2) g/dL Albumin 2.9 L (3.4-5.0) g/dL Globulin 2.9 Albumin/Globulin Ratio 1.00 Digoxin (0.9-2.0) ng/mL SARS CoV-2 RNA Rapid PROSPER (NEGATIVE) 12/11/20 12/11/20 12/11/20 Range/Units 10:15 10:15 11:10 WBC (5.0-10.0) 10^3/uL RBC (4.6-6.2) 10^6/uL Hgb (14.0-18.0) g/dL Hct (40.0-54.0) % MCV (80-100) fL MCH (27.0-34.0) pg MCHC (33.0-35.0) g/dL Plt Count (150-450) 10^3/uL Neut % (Auto) (42.2-75.2) % Lymph % (Auto) (20.5-50.1) % [place] % (Auto) (2-8) % Eos % (Auto) (1.0-3.0) % Baso % (Auto) (0.0-1.0) % PT (9.0-12.0) SEC INR (0.9-1.2) D-Dimer, Quantitative < 100 (0-400) ng/mL Sodium (136-145) mmol/L Potassium (3.5-5.1) mmol/L Chloride (98-107) mmol/L Carbon Dioxide (21-32) mmol/L Anion Gap (7-13) mEq/L BUN (7-18) mg/dL Creatinine (0.70-1.30) mg/dL Est Cr Clr Drug Dosing mL/min Estimated GFR (MDRD) BUN/Creatinine Ratio (No establ ref range) Glucose (74-99) mg/dL Calcium (8.5-10.1) mg/dL Magnesium (1.8-2.4) mg/dL Total Bilirubin (0.2-1.0) mg/dL AST (15-37) U/L ALT (16-63) U/L Alkaline Phosphatase (46-116) U/L Troponin I (0.000-0.056) ng/mL C-Reactive Protein (0.0-0.9) mg/dL Total Protein (6.4-8.2) g/dL Albumin (3.4-5.0) g/dL Globulin Albumin/Globulin Ratio Digoxin 0.8 L (0.9-2.0) ng/mL SARS CoV-2 RNA Rapid PROSPER Negative (NEGATIVE) Meds: Medications Generic Name Dose Route Start Last Admin Trade Name Freq PRN Reason Stop Dose Admin Sodium Chloride 1,000 mls @ 125 mls/hr 12/11/20 11:17 12/11/20 11:35 Normal Saline IV 12/11/20 19:16 500 mls/hr .BOLUS ONE Infusion Departure - Departure Time of Disposition: 11:37 Disposition: DC/Tfer to [facility] 02 Condition: Fair Clinical Impression: GI bleed Qualifiers: GI bleed type/associated pathology: gastrointestinal hemorrhage with hematemesis Qualified Code(s): K92.0 - Hematemesis - Discharge Information *PRESCRIPTION DRUG MONITORING PROGRAM REVIEWED*: Not Applicable *COPY OF PRESCRIPTION DRUG MONITORING REPORT IN PATIENT MAGDALENA: Not Applicable Instructions: Gastrointestinal Bleeding Forms: Interfacility Transfer EMTALA Care Plan Goals: Discussed the patient's history, examination and lab results with Dr. Gamez ([facility]). Dr. Gamez accepted the patient for continued evaluation and further management. The patient will be transported by [facility]. Sepsis Event Note (ED) - Evaluation Sepsis Screening Result: No Definite Risk - Focused Exam Vital Signs: Vital Signs Temp Pulse Resp BP Pulse Ox 12/11/20 10:04 96.9 F 105 H 18 106/64 96 - My Orders Last 24 Hours: My Active Orders 12/11/20 09:57 EKG Documentation Completion [RC] STAT - Assessment/Plan Last 24 Hours: My Active Orders 12/11/20 09:57 EKG Documentation Completion [RC] STAT
[2020-12-11 10:45] LABS: ANION GAP 11.3 mEq/L (7-13)
--- NOTE | 2020-12-11 11:08 | EDM.PDOC ---
ED HPI GENERAL MEDICAL PROBLEM - General Chief Complaint: General Time Seen by Provider: 12/11/20 11:26 Source of Information: Reports: Patient, RN History Limitations: Reports: No Limitations - History of Present Illness INITIAL COMMENTS - FREE TEXT/NARRATIVE: 80 y/o M c/o weakness since last night. Pt states he has had several episodes of diarrhea since last evening about 1 am. Pt also c/o L leg cramps and uncontrollable movements since Tuesday. 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 Gist tumor on stomach was removed ten years ago. No reported changes to remaining tumor. other hx of CVA 2 + years ago and heart disease. Is on warfarin last INR a week ago was 2.8. Is on Digoxin. Denies weaver, dizziness, lightheadedness, vision prob, cp, abd pn, pelvic pain, blood in stool, difficulty voiding, pedal edema. Onset: Sudden, Other (last night at 1 am) Location: Reports: Generalized Improves with: Reports: Other (sitting or lying flat) Worsens with: Reports: Movement (standing, ambulating) Associated Symptoms: Reports: No Other Symptoms - Related Data Allergies Allergy/AdvReac Type Severity Reaction Status Date / Time No Known Allergies Allergy Verified 12/11/20 10:22 Home Meds: Home Meds Acetaminophen [Tylenol] 2 tab PO Q6H PRN 11/26/15 [History] Aspirin [Halfprin] 1 tab PO DAILY 11/26/15 [History] Melatonin/Pyridoxine HCl (B6) [Melatonin 10 mg Tablet] 1 tab PO ASDIRECTED PRN 11/26/15 [History] Multivitamin [Multivitamins] 1 tab PO DAILY 11/26/15 [History] Pantoprazole [ProTONIX] 1 cap PO DAILY 11/26/15 [History] Psyllium [Metamucil] 30 ml PO BID 11/26/15 [History] carvediloL [Coreg] 25 mg PO BIDMEALS 11/26/15 [History] Furosemide 40 mg PO DAILY 09/29/16 [History] Nitroglycerin [Nitrostat] 0.4 mg SL ASDIRECTED PRN 10/20/16 [History] SUNItinib Malate [Sutent] 50 mg PO DAILY 03/27/17 [History] ALPRAZolam [Xanax] 0.25 mg PO TID PRN 03/26/19 [History] Potassium Chloride [Klor-Con 10] 10 meq PO DAILY 03/26/19 [History] Sennosides [Senna] 8.6 mg PO BID 03/26/19 [History] Warfarin [Coumadin] 2.5 mg PO ASDIRECTED 03/26/19 [History] atorvaSTATin Calcium [Lipitor] 40 mg PO DAILY 03/26/19 [History] Past Medical History HEENT History: Reports: Cataract, Impaired Vision Other HEENT History: WEARS CORRECTIVE LENSES Cardiovascular History: Reports: Afib, Blood Clots/VTE/DVT, Cardiomyopathy, Heart Failure, High Cholesterol, Hypertension, SOB on Exertion Respiratory History: Reports: Sleep Apnea, Other (See Below) Other Respiratory History: periods fast breathing happen randomly throughout the day and night. Gastrointestinal History: Reports: Other (See Below) Other Gastrointestinal History: GIST (gastrointestinal stromal tumor); Genitourinary History: Reports: BPH Musculoskeletal History: Reports: Arthritis Neurological History: Reports: Other (See Below) Other Neuro History: bleed in brain Psychiatric History: Reports: Anxiety Endocrine/Metabolic History: Reports: None Hematologic History: Reports: None Immunologic History: Reports: None Oncologic (Cancer) History: Reports: Esophageal, Other (See Below) Other Oncologic History: Gist Dermatologic History: Reports: None - Infectious Disease History Infectious Disease History: Reports: None - Past Surgical History HEENT Surgical History: Reports: Cataract Surgery, Tonsillectomy GI Surgical History: Reports: Colonoscopy, EGD, Other (See Below) Other GI Surgeries/Procedures: PARTIAL GASTRECTOMY FOR GIST Neurological Surgical History: Reports: C-Spine, Lumbar Spine Other Neurological Surgeries/Procedures: C-SPINE C5-6; LUMBAR SPINE SURGERY L4-5 Musculoskeletal Surgical History: Reports: Carpal Tunnel Other Musculoskeletal Surgeries/Procedures:: CARPAL TUNNEL RELEASE RIGHT Social & Family History - Family History Family Medical History: No Pertinent Family History - Tobacco Use Tobacco Use Status *Q: Never Tobacco User Second Hand Smoke Exposure: No - Caffeine Use Caffeine Use: Reports: None - Recreational Drug Use Recreational Drug Use: No - Living Situation & Occupation Living situation: Reports: Occupation: Retired ED ROS GENERAL - Review of Systems Review Of Systems: Comprehensive ROS is negative, except as noted in HPI. ED EXAM, GENERAL - Physical Exam Exam: See Below Free Text/Narrative:: 80 y/o M c/o weakness since last night. Pt states he has had several episodes of diarrhea since last eveing about 1 am. Pt also c/o L leg cramps and uncontrollable movements since Tuesday. 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 Gist tumor on stomach was removed ten years ago. No reported changes to remaining tumor. other hx of CVA 2 + years ago and heart disease. Is on warfarin last INR a week ago was 2.8. Is on Digoxin. Denies weaver, dizziness, lightheadedness, vision prob, cp, abd pn, pelvic pain, blood in stool, difficulty voiding, pedal edema. Exam Limited By: No Limitations General Appearance: Alert, WD/WN, No Apparent Distress Ears: Normal External Exam, Normal Canal, Hearing Grossly Normal, Normal TMs Ear Exam: Bilateral Ear: Auricle Normal, Canal Normal, TM normal Nose: Normal Inspection, Normal Mucosa, No Blood Throat/Mouth: Normal Inspection, Normal Lips, Normal Teeth, Normal Gums, Normal Oropharynx, Normal Voice, No Airway Compromise, Other (tongue dry and furrowed) Head: Atraumatic, Normocephalic Neck: Normal Inspection, Supple, Non-Tender, Full Range of Motion Respiratory/Chest: No Respiratory Distress, Lungs Clear, Normal Breath Sounds, No Accessory Muscle Use, Chest Non-Tender Cardiovascular: No Edema, No Gallop (weak pedal pulse L leg), No JVD, No Murmur, Tachycardia, Irregularly Irregular, Other GI/Abdominal: Normal Bowel Sounds, Soft, Non-Tender, No Distention Back Exam: Normal Inspection Extremities: Normal Inspection, No Pedal Edema, Other (left calf tender to palpation) Neurological: Alert, Oriented, CN II-XII Intact, Normal Cognition, Normal Gait, Normal Reflexes, No Motor/Sensory Deficits Psychiatric: Normal Affect, Normal Mood Skin Exam: Warm, Dry, Intact, Other (diffusley pale throughout) Course - Vital Signs Last Recorded V/S: Last Vital Signs Temp 36.1 C 12/11/20 10:04 Pulse 105 H 12/11/20 10:04 Resp 18 12/11/20 10:04 BP 106/64 12/11/20 10:04 Pulse Ox 96 12/11/20 10:04 Orthostatic Blood Pressure [ 118/101 Standing] Orthostatic Blood Pressure [ 101/57 Sitting] Orthostatic Blood Pressure [ 106/64 Supine] - Orders/Labs/Meds Orders: Active Orders 24 hr Category Date Time Status EKG Documentation Completion [RC] STAT Care 12/11/20 09:57 Active CORONAVIRUS COVID-19 RAPID [MOLEC] Urgent Lab 12/11/20 11:10 Received Sodium Chloride 0.9% [Normal Saline] 1,000 ml Med 12/11/20 11:17 Ordered IV .BOLUS Medication Orders Sodium Chloride (Normal Saline) 1,000 mls @ 125 mls/hr IV .BOLUS ONE Stop: 12/11/20 19:16 Last Admin: 12/11/20 11:24 Dose: 125 mls/hr Documented by: Labs: Laboratory Tests 12/11/20 12/11/20 12/11/20 Range/Units 10:15 10:15 10:15 WBC 8.5 (5.0-10.0) 10^3/uL RBC 2.86 L (4.6-6.2) 10^6/uL Hgb 7.8 L D (14.0-18.0) g/dL Hct 24.5 L (40.0-54.0) % MCV 85.7 (80-100) fL MCH 27.3 (27.0-34.0) pg MCHC 31.8 L (33.0-35.0) g/dL Plt Count 308 (150-450) 10^3/uL Neut % (Auto) 73.8 (42.2-75.2) % Lymph % (Auto) 18.9 L (20.5-50.1) % [place] % (Auto) 6.3 (2-8) % Eos % (Auto) 0.6 L (1.0-3.0) % Baso % (Auto) 0.4 (0.0-1.0) % PT 37.4 H (9.0-12.0) SEC INR 4.0 H (0.9-1.2) D-Dimer, Quantitative (0-400) ng/mL Sodium 138 (136-145) mmol/L Potassium 4.3 (3.5-5.1) mmol/L Chloride 105 (98-107) mmol/L Carbon Dioxide 26 (21-32) mmol/L Anion Gap 11.3 (7-13) mEq/L BUN 34 H (7-18) mg/dL Creatinine 1.46 H (0.70-1.30) mg/dL Est Cr Clr Drug Dosing 42.98 mL/min Estimated GFR (MDRD) 46 BUN/Creatinine Ratio 23.3 (No establ ref range) Glucose 199 H (74-99) mg/dL Calcium 8.4 L (8.5-10.1) mg/dL Magnesium 1.9 (1.8-2.4) mg/dL Total Bilirubin 0.6 (0.2-1.0) mg/dL AST 20 (15-37) U/L ALT 23 (16-63) U/L Alkaline Phosphatase 92 (46-116) U/L Troponin I 0.023 (0.000-0.056) ng/mL C-Reactive Protein 1.7 H (0.0-0.9) mg/dL Total Protein 5.8 L (6.4-8.2) g/dL Albumin 2.9 L (3.4-5.0) g/dL Globulin 2.9 Albumin/Globulin Ratio 1.00 Digoxin (0.9-2.0) ng/mL 12/11/20 12/11/20 Range/Units 10:15 10:15 WBC (5.0-10.0) 10^3/uL RBC (4.6-6.2) 10^6/uL Hgb (14.0-18.0) g/dL Hct (40.0-54.0) % MCV (80-100) fL MCH (27.0-34.0) pg MCHC (33.0-35.0) g/dL Plt Count (150-450) 10^3/uL Neut % (Auto) (42.2-75.2) % Lymph % (Auto) (20.5-50.1) % [place] % (Auto) (2-8) % Eos % (Auto) (1.0-3.0) % Baso % (Auto) (0.0-1.0) % PT (9.0-12.0) SEC INR (0.9-1.2) D-Dimer, Quantitative < 100 (0-400) ng/mL Sodium (136-145) mmol/L Potassium (3.5-5.1) mmol/L Chloride (98-107) mmol/L Carbon Dioxide (21-32) mmol/L Anion Gap (7-13) mEq/L BUN (7-18) mg/dL Creatinine (0.70-1.30) mg/dL Est Cr Clr Drug Dosing mL/min Estimated GFR (MDRD) BUN/Creatinine Ratio (No establ ref range) Glucose (74-99) mg/dL Calcium (8.5-10.1) mg/dL Magnesium (1.8-2.4) mg/dL Total Bilirubin (0.2-1.0) mg/dL AST (15-37) U/L ALT (16-63) U/L Alkaline Phosphatase (46-116) U/L Troponin I (0.000-0.056) ng/mL C-Reactive Protein (0.0-0.9) mg/dL Total Protein (6.4-8.2) g/dL Albumin (3.4-5.0) g/dL Globulin Albumin/Globulin Ratio Digoxin 0.8 L (0.9-2.0) ng/mL Meds: Medications Generic Name Dose Route Start Last Admin Trade Name Freq PRN Reason Stop Dose Admin Sodium Chloride 1,000 mls @ 125 mls/hr 12/11/20 11:17 12/11/20 11:24 Normal Saline IV 12/11/20 19:16 125 mls/hr .BOLUS ONE Administration - Re-Assessments/Exams Free Text/Narrative Re-Assessment/Exam: 12/11/20 11:26 The patient and his were advised of the examination and lab results. The patient and his were advised that the patient has a GI bleed and will need to be transferred to another facility for continued evaluation and further man agement. The patient reports his primary care, cafe team member and GI Specialist are all in [place] in [place], so he would like to be transferred there for continued evaluation and further management. The patient and his were advised of other transfer possibilities, but they refused to be transferred to any other facility. Free Text/Narrative Re-Assessment/Exam: 12/11/20 11:31 I have examined the patient. I have discussed findings and treatment plan with the PA student. I agree with the assessment and plan in the following students note. Departure - Departure Time of Disposition: 11:24 Disposition: DC/Tfer to Acute Hospital 02 Condition: Poor Clinical Impression: GI bleed Qualifiers: GI bleed type/associated pathology: gastrointestinal hemorrhage with hematemesis Qualified Code(s): K92.0 - Hematemesis - Discharge Information *PRESCRIPTION DRUG MONITORING PROGRAM REVIEWED*: Not Applicable *COPY OF PRESCRIPTION DRUG MONITORING REPORT IN PATIENT MAGDALENA: Not Applicable Forms: Interfacility Transfer EMTALA Care Plan Goals: Discussed the patient's history, examination and lab results with Dr. Gamez ([facility] Dr. Gamez accepted the patient for continued evaluation and further management. The patient will be transported by [facility]. Sepsis Event Note (ED) - Evaluation Sepsis Screening Result: No Definite Risk - Focused Exam Vital Signs: Vital Signs Temp Pulse Resp BP Pulse Ox 12/11/20 10:04 36.1 C 105 H 18 106/64 96 - My Orders Last 24 Hours: My Active Orders 12/11/20 11:10 CORONAVIRUS COVID-19 RAPID [MOLEC] Urgent 12/11/20 11:17 Sodium Chloride 0.9% [Normal Saline] 1,000 ml IV .BOLUS - Assessment/Plan Last 24 Hours: My Active Orders 12/11/20 11:10 CORONAVIRUS COVID-19 RAPID [MOLEC] Urgent 12/11/20 11:17 Sodium Chloride 0.9% [Normal Saline] 1,000 ml IV .BOLUS
[~2020-12-11 11:26] MED LIST: Sodium Chloride 0.9% 1,000 ML IV ONE
== END 2020-12-11 12:10 ==
LOC: DL.ED 11:26
DX: K92.0 Hematemesis (principal); I48.91 Unspecified atrial fibrillation; E78.00 Pure hypercholesterolemia, unspecified; I11.0 Hypertensive heart disease with heart failure; I50.9 Heart failure, unspecified; M19.90 Unspecified osteoarthritis, unspecified site; Z79.82 Long term (current) use of aspirin; Z79.899 Other long term (current) drug therapy; Z86.718 Personal history of other venous thrombosis and embolism; Z79.01 Long term (current) use of anticoagulants; Z20.822 Contact with and (suspected) exposure to COVID-19
CPT/HCPCS: 36415; 80053; 80162; 82272; 83735; 84484; 85025; 85379; 85610; 86140; 93005; 99285; J7030; U0002; 99284

== ENCOUNTER 2020-12-22 23:00 | Emergency (ER) | payer MEDICARE, BC ==
--- NOTE | 2020-12-22 23:47 | CT ---
PROCEDURE INFORMATION: Exam: CT Abdomen And Pelvis Without Contrast Exam date and time: 12/22/2020 11:19 PM Age: 80 years old Clinical indication: Other: Abdominal pain; Additional info: Abdominal pain, weakness TECHNIQUE: Imaging protocol: Computed tomography of the abdomen and pelvis without contrast. Radiation optimization: All CT scans at this facility use at least one of these dose optimization techniques: automated exposure control; mA and/or kV adjustment per patient size (includes targeted exams where dose is matched to clinical indication); or iterative reconstruction. COMPARISON: No relevant prior studies available. FINDINGS: Lungs: There is atelectasis versus scarring in the left lower lobe. Pleural spaces: There is a small left pleural effusion. Mediastinal space: There is a moderate hiatal hernia. Liver: Allowing for lack of IV contrast, no focal hepatic lesions are identified. Gallbladder and bile ducts: The gallbladder is not distended. There is no biliary ductal dilatation. Pancreas: The pancreas is within normal limits. Spleen: The spleen is normal in size. Adrenal glands: The adrenal glands are normal in appearance. Kidneys and ureters: The kidneys are symmetric in size. There is no hydronephrosis. No renal or ureteral calculi are identified. Stomach and bowel: The stomach is not distended. There are thickened and inflamed loops of jejunum in the left upper quadrant. There is diverticulosis of the sigmoid colon without clear evidence for acute diverticulitis. There are 3 thin metallic densities overlying the lumen of the colon at the level of the hepatic flexure, and another in the rectum. Appendix: There is a normal appendix in the right lower quadrant. Intraperitoneal space: There is a small volume of free fluid in the pelvis. There is a small volume of free air, most pronounced in the left upper quadrant. Vasculature: The aorta is normal in caliber. Lymph nodes: No pathologically enlarged lymph nodes are identified in the abdomen or pelvis. Urinary bladder: The urinary bladder appears normal. Reproductive: The prostate gland and seminal vesicles are unremarkable. Bones/joints: There is multilevel degenerative disc disease in the lumbar spine, resulting in spinal stenosis at L3-L4 and L4-L5. No acute fractures or aggressive bone lesions are identified. Soft tissues: Within normal limits. IMPRESSION: Pneumoperitoneum indicating perforation of a hollow viscus. The location of the perforation is not immediately apparent. There are thickened and inflamed loops of jejunum in the left upper quadrant and the majority of the gas is located in the left upper quadrant, so perhaps the perforation arises here.
--- NOTE | 2020-12-22 23:48 | CT ---
PROCEDURE INFORMATION: Exam: CT Cervical Spine Without Contrast Exam date and time: 12/22/2020 11:19 PM Age: 80 years old Clinical indication: Weakness and other: Fall; Additional info: Abdominal pain, weakness fall TECHNIQUE: Imaging protocol: Computed tomography images of the cervical spine without contrast. Radiation optimization: All CT scans at this facility use at least one of these dose optimization techniques: automated exposure control; mA and/or kV adjustment per patient size (includes targeted exams where dose is matched to clinical indication); or iterative reconstruction. COMPARISON: No relevant prior studies available. FINDINGS: Limitations: Metallic artifact from patient's spinal hardware limits the examination. Bones/joints: Postoperative changes of the cervical spine. Status post anterior fusion from C4-C6. Discs/Spinal canal/Neural foramina: There is disc space narrowing, marginal osteophyte formation, facet arthropathy and uncovertebral spurring. Lungs: Lung apices are normal. Soft tissues: Unremarkable. IMPRESSION: 1. No acute cervical spine process. 2. Degenerative disc disease.
[2020-12-22 23:52] LABS: ANION GAP 15.7 mEq/L (7-13)
--- NOTE | 2020-12-22 23:53 | CT ---
PROCEDURE INFORMATION: Exam: CT Head Without Contrast Exam date and time: 12/22/2020 11:19 PM Age: 80 years old Clinical indication: Other: Weakness, fall; Additional info: Abdominal pain, weakness TECHNIQUE: Imaging protocol: Computed tomography of the head without contrast. Radiation optimization: All CT scans at this facility use at least one of these dose optimization techniques: automated exposure control; mA and/or kV adjustment per patient size (includes targeted exams where dose is matched to clinical indication); or iterative reconstruction. COMPARISON: CT Head wo Cont 05/03/2017 10:05 AM FINDINGS: Brain: Encephalomalacia is present within the medial left temporal lobe. Focal hypodensity in the left addison radiata from remote lacunar infarct. There are periventricular hypodensities suggestive of small vessel disease. No acute infarct or hemorrhage. Cerebral ventricles: No ventriculomegaly. Bones/joints: Slightly decreased attenuation in the left occipital lobe similar to the prior examination and likely secondary to artifact from the contour of the skull. Paranasal sinuses: Mucous retention cyst left maxillary sinus. Mastoid air cells: Visualized mastoid air cells are well aerated. Soft tissues: Unremarkable. IMPRESSION: No acute intracranial abnormality.
[2020-12-23] MEDS ORDERED: Sodium Chloride 0.9% 1,000 ML IV SCH (00:15)
[2020-12-23] MEDS ORDERED: Piperacillin/Tazobactam 3.375 GM in Sodium Chloride 0.9% 100 ML IV ONE (00:22)
--- NOTE | 2020-12-23 00:24 | EDM.PDOC ---
ED HPI GENERAL MEDICAL PROBLEM - General Chief Complaint: Abdominal Pain Stated Complaint: AMBULANCE Time Seen by Provider: 12/22/20 23:05 Source of Information: Reports: Patient, Family, RN History Limitations: Reports: No Limitations - History of Present Illness INITIAL COMMENTS - FREE TEXT/NARRATIVE: ED via family with c/o mid abdominal pain. No vomiting or diarrhea. Recent GI beed 12/11. Remote hx stomach cancer. reports increased falls recently tonight fell onto bed, lowered to floor, denies hiting head but abrasion above right eyebrow, both deny loss of consciousness. Patient is on Coumadin. No reported fever or chills. Last COVID test on 12/11. Primary care in [place]. - Related Data Allergies Allergy/AdvReac Type Severity Reaction Status Date / Time No Known Allergies Allergy Verified 12/22/20 23:07 Home Meds: Home Meds Acetaminophen [Tylenol] 2 tab PO Q6H PRN 11/26/15 [History] Aspirin [Halfprin] 1 tab PO DAILY 11/26/15 [History] Melatonin/Pyridoxine HCl (B6) [Melatonin 10 mg Tablet] 1 tab PO ASDIRECTED PRN 11/26/15 [History] Multivitamin [Multivitamins] 1 tab PO DAILY 11/26/15 [History] Pantoprazole [ProTONIX] 1 cap PO DAILY 11/26/15 [History] Psyllium [Metamucil] 30 ml PO BID 11/26/15 [History] carvediloL [Coreg] 25 mg PO BIDMEALS 11/26/15 [History] Furosemide 40 mg PO DAILY 09/29/16 [History] Nitroglycerin [Nitrostat] 0.4 mg SL ASDIRECTED PRN 10/20/16 [History] SUNItinib Malate [Sutent] 50 mg PO DAILY 03/27/17 [History] ALPRAZolam [Xanax] 0.25 mg PO TID PRN 03/26/19 [History] Potassium Chloride [Klor-Con 10] 10 meq PO DAILY 03/26/19 [History] Sennosides [Senna] 8.6 mg PO BID 03/26/19 [History] Warfarin [Coumadin] 2.5 mg PO ASDIRECTED 03/26/19 [History] atorvaSTATin Calcium [Lipitor] 40 mg PO DAILY 03/26/19 [History] Past Medical History HEENT History: Reports: Cataract, Impaired Vision Other HEENT History: WEARS CORRECTIVE LENSES Cardiovascular History: Reports: Afib, Cardiomyopathy, Heart Failure, High Cholesterol, Hypertension, SOB on Exertion Respiratory History: Reports: Sleep Apnea, Other (See Below) Other Respiratory History: periods fast breathing happen randomly throughout the day and night. Gastrointestinal History: Reports: Other (See Below) Other Gastrointestinal History: GIST (gastrointestinal stromal tumor); Genitourinary History: Reports: BPH Musculoskeletal History: Reports: Arthritis Neurological History: Reports: None Psychiatric History: Reports: None Endocrine/Metabolic History: Reports: None Hematologic History: Reports: None Immunologic History: Reports: None Oncologic (Cancer) History: Reports: Esophageal, Other (See Below) Other Oncologic History: Gist Dermatologic History: Reports: None - Past Surgical History HEENT Surgical History: Reports: Cataract Surgery, Tonsillectomy GI Surgical History: Reports: Colonoscopy, EGD, Other (See Below) Other GI Surgeries/Procedures: PARTIAL GASTRECTOMY FOR GIST Neurological Surgical History: Reports: C-Spine, Lumbar Spine Other Neurological Surgeries/Procedures: C-SPINE C5-6; LUMBAR SPINE SURGERY L4-5 Musculoskeletal Surgical History: Reports: Carpal Tunnel Other Musculoskeletal Surgeries/Procedures:: CARPAL TUNNEL RELEASE RIGHT Social & Family History - Family History Family Medical History: No Pertinent Family History - Caffeine Use Caffeine Use: Reports: Coffee - Living Situation & Occupation Living situation: Reports: Occupation: Retired ED ROS GENERAL - Review of Systems Review Of Systems: See Below Constitutional: Reports: Weakness, Decreased Appetite HEENT: Reports: Hearing Loss Respiratory: Reports: No Symptoms Cardiovascular: Reports: No Symptoms GI/Abdominal: Reports: Abdominal Pain, Decreased Appetite : Reports: No Symptoms Neurological: Reports: Pre-Existing Deficit (speech), Trouble Speaking, Weakness (general). Denies: Seizure ED EXAM, GI/ABD - Physical Exam Exam: See Below Exam Limited By: No Limitations General Appearance: Alert, Mild Distress Ears: Normal External Exam, Hearing Loss Nose: Normal Inspection Throat/Mouth: Normal Inspection Head: Normocephalic, Other (abrasion right forehead) Neck: Normal Inspection, Non-Tender Respiratory/Chest: No Respiratory Distress, Lungs Clear Cardiovascular: Normal Peripheral Pulses, Regular Rate, Rhythm GI/Abdominal Exam: Normal Bowel Sounds, Soft, No Distention Back Exam: Full Range of Motion Extremities: Normal Range of Motion Neurological: Alert, Oriented, Normal Cognition, Normal Reflexes, No Motor/Sensory Deficits Psychiatric: Anxious Skin Exam: Cool, Pallor Course - Orders/Labs/Meds Orders: Active Orders 24 hr Category Date Time Status EKG 12 Lead [EKG Documentation Completion] [RC] ROUTINE Care 12/22/20 23:40 Active Gastrointestinal Tube Mgmt [RC] ASDIRECTED Care 12/23/20 01:45 Active Chest 1V Frontal [CR] Stat Exams 12/23/20 01:45 Ordered CULTURE BLOOD [BC] Stat Lab 12/23/20 00:28 Received CULTURE BLOOD [BC] Stat Lab 12/23/20 01:05 Received Lactated Ringers [Ringers, Lactated] 1,000 ml Med 12/23/20 01:45 Active IV ASDIRECTED Sodium Chloride 0.9% [Normal Saline] 1,000 ml Med 12/23/20 00:15 Active IV ASDIRECTED fentaNYL [Sublimaze] Med 12/23/20 02:28 Active 25 mcg IVPUSH ONETIME PRN Blood Culture x2 Reflex Set [OM.PC] Stat Oth 12/23/20 00:15 Ordered NG [Nasogastric Orogastric Tube Insertion] [OM.PC] Oth 12/23/20 01:45 Ordered Routine Medication Orders Fentanyl (Sublimaze) 25 mcg IVPUSH ONETIME PRN PRN Reason: Pain (severe 7-10) Last Admin: 12/23/20 04:26 Dose: 25 mcg Documented by: YESIKA Sodium Chloride (Normal Saline) 1,000 mls @ 999 mls/hr IV ASDIRECTED [facility] Last Infusion: 12/23/20 02:02 Dose: 999 mls/hr Documented by: Admin: 12/23/20 00:06 Dose: 999 mls/hr Documented by: MILADIS Lactated Ringer's (Ringers, Lactated) 1,000 mls @ 150 mls/hr IV ASDIRECTED [facility] Last Admin: 12/23/20 02:04 Dose: 150 mls/hr Documented by: YESIKA Labs: Laboratory Tests 12/22/20 12/22/20 12/22/20 Range/Units 23:13 23:13 23:13 WBC 12.7 H (5.0-10.0) 10^3/uL RBC 3.76 L (4.6-6.2) 10^6/uL Hgb 10.0 L D (14.0-18.0) g/dL Hct 32.5 L (40.0-54.0) % MCV 86.4 (80-100) fL MCH 26.6 L (27.0-34.0) pg MCHC 30.8 L (33.0-35.0) g/dL Plt Count 536 H D (150-450) 10^3/uL Neut % (Auto) 75.0 (42.2-75.2) % Lymph % (Auto) 18.3 L (20.5-50.1) % [place] % (Auto) 5.8 (2-8) % Eos % (Auto) 0.7 L (1.0-3.0) % Baso % (Auto) 0.2 (0.0-1.0) % PT 33.2 H (9.0-12.0) SEC INR 3.5 H (0.9-1.2) Sodium 140 (136-145) mmol/L Potassium 3.7 (3.5-5.1) mmol/L Chloride 103 (98-107) mmol/L Carbon Dioxide 25 (21-32) mmol/L Anion Gap 15.7 H (7-13) mEq/L BUN 20 H (7-18) mg/dL Creatinine 1.26 (0.70-1.30) mg/dL Est Cr Clr Drug Dosing 49.80 mL/min Estimated GFR (MDRD) 55 BUN/Creatinine Ratio 15.9 (No establ ref range) Glucose 128 H (74-99) mg/dL Lactic Acid (0.4-2.0) mmol/L Calcium 8.1 L (8.5-10.1) mg/dL Magnesium 2.0 (1.8-2.4) mg/dL Total Bilirubin 0.9 (0.2-1.0) mg/dL AST 19 (15-37) U/L ALT 29 (16-63) U/L Alkaline Phosphatase 89 (46-116) U/L Total Protein 6.5 (6.4-8.2) g/dL Albumin 2.8 L (3.4-5.0) g/dL Globulin 3.7 Albumin/Globulin Ratio 0.76 Amylase 45 (25-115) U/L Lipase 137 (73-393) U/L SARS-CoV-2 RNA (PROSPER) (NEGATIVE) 12/23/20 12/23/20 Range/Units 00:28 01:04 WBC (5.0-10.0) 10^3/uL RBC (4.6-6.2) 10^6/uL Hgb (14.0-18.0) g/dL Hct (40.0-54.0) % MCV (80-100) fL MCH (27.0-34.0) pg MCHC (33.0-35.0) g/dL Plt Count (150-450) 10^3/uL Neut % (Auto) (42.2-75.2) % Lymph % (Auto) (20.5-50.1) % [place] % (Auto) (2-8) % Eos % (Auto) (1.0-3.0) % Baso % (Auto) (0.0-1.0) % PT (9.0-12.0) SEC INR (0.9-1.2) Sodium (136-145) mmol/L Potassium (3.5-5.1) mmol/L Chloride (98-107) mmol/L Carbon Dioxide (21-32) mmol/L Anion Gap (7-13) mEq/L BUN (7-18) mg/dL Creatinine (0.70-1.30) mg/dL Est Cr Clr Drug Dosing mL/min Estimated GFR (MDRD) BUN/Creatinine Ratio (No establ ref range) Glucose (74-99) mg/dL Lactic Acid 4.2 H* (0.4-2.0) mmol/L Calcium (8.5-10.1) mg/dL Magnesium (1.8-2.4) mg/dL Total Bilirubin (0.2-1.0) mg/dL AST (15-37) U/L ALT (16-63) U/L Alkaline Phosphatase (46-116) U/L Total Protein (6.4-8.2) g/dL Albumin (3.4-5.0) g/dL Globulin Albumin/Globulin Ratio Amylase (25-115) U/L Lipase (73-393) U/L SARS-CoV-2 RNA (PROSPER) Negative (NEGATIVE) Meds: Medications Generic Name Dose Route Start Last Admin Trade Name Freq PRN Reason Stop Dose Admin Fentanyl 25 mcg 12/23/20 02:28 12/23/20 04:26 Sublimaze IVPUSH 25 mcg ONETIME PRN Administration Pain (severe 7-10) Sodium Chloride 1,000 mls @ 999 mls/hr 12/23/20 00:15 12/23/20 02:02 Normal Saline IV 999 mls/hr ASDIRECTED FRANK Infusion Lactated Ringer's 1,000 mls @ 150 mls/hr 12/23/20 01:45 12/23/20 02:04 Ringers, Lactated IV 150 mls/hr ASDIRECTED FRANK Administration Discontinued Medications Generic Name Dose Route Start Last Admin Trade Name Freq PRN Reason Stop Dose Admin Fentanyl 25 mcg 12/23/20 02:27 12/23/20 03:01 Sublimaze IVPUSH 12/23/20 02:28 25 mcg ONETIME ONE Administration Piperacillin Sod/Tazobactam 100 mls @ 200 mls/hr 12/23/20 00:22 12/23/20 02:02 Sod 3.375 gm/ Sodium Chloride IV 12/23/20 00:51 Infused ONETIME ONE Infusion Vancomycin HCl 1,250 mg/ 250 mls @ 166.667 mls/hr 12/23/20 01:17 12/23/20 03:43 Sodium Chloride IV 12/23/20 02:46 Infused ONETIME ONE Infusion - Re-Assessments/Exams Free Text/Narrative Re-Assessment/Exam: 12/23/20 03:[address] [facility] awaiting call back from surgeon. Due to dx and time delay, alternative higher care sought due to status . Local ground transport unavailable due to weather and road conditions. No fixed wing available. [facility] unavailable to accept due to lack of beds. [facility] accepting patient. [facility] transport available, team enroute from [place] and will transport patient to [place]. updated. Patient vitals remain stable at present. Patient desires DNR, DNI Departure - Departure Time of Disposition: 04:47 Disposition: DC/Tfer to Acute Hospital 02 Condition: Undetermined Clinical Impression: Perforated bowel Abdominal pain Qualifiers: Abdominal location: generalized Qualified Code(s): R10.84 - Generalized abdominal pain - Discharge Information *PRESCRIPTION DRUG MONITORING PROGRAM REVIEWED*: No *COPY OF PRESCRIPTION DRUG MONITORING REPORT IN PATIENT MAGDALENA: No Forms: ED Department Discharge, Interfacility Transfer EMTALA - My Orders Last 24 Hours: My Active Orders 12/22/20 23:40 EKG 12 Lead [EKG Documentation Completion] [RC] ROUTINE 12/23/20 00:15 Sodium Chloride 0.9% [Normal Saline] 1,000 ml IV ASDIRECTED Blood Culture x2 Reflex Set [OM.PC] Stat 12/23/20 00:28 CULTURE BLOOD [BC] Stat 12/23/20 01:05 CULTURE BLOOD [BC] Stat 12/23/20 01:45 Gastrointestinal Tube Mgmt [RC] ASDIRECTED Chest 1V Frontal [CR] Stat Lactated Ringers [Ringers, Lactated] 1,000 ml IV ASDIRECTED NG [Nasogastric Orogastric Tube Insertion] [OM.PC] Routine 12/23/20 02:28 fentaNYL [Sublimaze] 25 mcg IVPUSH ONETIME PRN - Assessment/Plan Last 24 Hours: My Active Orders 12/22/20 23:40 EKG 12 Lead [EKG Documentation Completion] [RC] ROUTINE 12/23/20 00:15 Sodium Chloride 0.9% [Normal Saline] 1,000 ml IV ASDIRECTED Blood Culture x2 Reflex Set [OM.PC] Stat 12/23/20 00:28 CULTURE BLOOD [BC] Stat 12/23/20 01:05 CULTURE BLOOD [BC] Stat 12/23/20 01:45 Gastrointestinal Tube Mgmt [RC] ASDIRECTED Chest 1V Frontal [CR] Stat Lactated Ringers [Ringers, Lactated] 1,000 ml IV ASDIRECTED NG [Nasogastric Orogastric Tube Insertion] [OM.PC] Routine 12/23/20 02:28 fentaNYL [Sublimaze] 25 mcg IVPUSH ONETIME PRN
[2020-12-23] MEDS ORDERED: Lactated Ringers 1,000 ML IV SCH (01:45)
[2020-12-23] MEDS ORDERED: fentaNYL 100 MCG/2 ML SDV IVPUSH ONE (02:27)
--- NOTE | 2020-12-23 02:50 | CR ---
PROCEDURE INFORMATION: Exam: XR Abdomen, 1 View Exam date and time: 12/23/2020 2:38 AM Age: 80 years old Clinical indication: Other: Confirm ng/og tube placement TECHNIQUE: Imaging protocol: XR of the abdomen. Views: Frontal supine view of the abdomen. 1 View. COMPARISON: CT Abdomen Pelvis wo Cont 12/22/2020 11:19 PM FINDINGS: Tubes, catheters and devices: Nasogastric tube terminates in the stomach. Gastrointestinal tract: Normal. No bowel dilation. Intraperitoneal space: Linear metallic densities in the right upper quadrant. Bones/joints: Unremarkable. IMPRESSION: Nasogastric tube terminates in the stomach.
[2020-12-23] MEDS: fentaNYL 100 MCG/2 ML SDV IVPUSH PRN ×2 (03:01→04:26)
== END 2020-12-23 04:40 ==
LOC: DL.ED 23:00
DX: K63.1 Perforation of intestine (nontraumatic) (principal); I48.91 Unspecified atrial fibrillation; E78.00 Pure hypercholesterolemia, unspecified; I11.0 Hypertensive heart disease with heart failure; I50.9 Heart failure, unspecified; M19.90 Unspecified osteoarthritis, unspecified site; Z79.82 Long term (current) use of aspirin; Z79.899 Other long term (current) drug therapy; Z20.822 Contact with and (suspected) exposure to COVID-19; Z79.01 Long term (current) use of anticoagulants
CPT/HCPCS: 36415; 43752; 70450; 72125; 74018; 74176; 80053; 82150; 83605; 83690; 83735; 85025; 85610; 87040; 93005; 96365; 96366; 96367; 96375; 96376; 99285; J2543; J3010; J3370; J7030; J7050; J7120; U0002

== ENCOUNTER 2021-08-21 14:17 | Emergency (ER) | payer MEDICARE, BC ==
[2021-08-21 14:36] VITALS: BP 113/79; PULSE 101
[2021-08-21] MEDS ORDERED: Sodium Chloride 0.9% 10 ML Syringe FLUSH PRN (15:42)
--- NOTE | 2021-08-21 15:44 | EDM.PDOC ---
<Gary White Wesley - Last Filed: 08/21/21 16:31> ED HPI GENERAL MEDICAL PROBLEM - General Chief Complaint: Abdominal Pain Time Seen by Provider: 08/21/21 15:38 Source of Information: Reports: Patient History Limitations: Reports: No Limitations - History of Present Illness INITIAL COMMENTS - FREE TEXT/NARRATIVE: 80 y/o M C/O abd pn for one week. He reports he has been vomiting normal food particles. He states he cannot keep anything down and has not eaten much at all this week. The pain is worse after eating, sharp in nature, non radiating and lasts several hours. At the present the pt is pain free. Denies fever, cough, chills, drugs, etoh, cp, db, pelvic pn, recent trauma, extremity pn, drugs, etoh. 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 Abdomen Pain Score (Numeric/FACES): 10 - Related Data Allergies Allergy/AdvReac Type Severity Reaction Status Date / Time No Known Allergies Allergy Verified 12/22/20 23:07 Home Meds: Home Meds Acetaminophen [Tylenol] 2 tab PO Q6H PRN 11/26/15 [History] Multivitamin [Multivitamins] 1 tab PO DAILY 11/26/15 [History] Pantoprazole [ProTONIX] 1 cap PO DAILY 11/26/15 [History] ALPRAZolam [Xanax] 0.25 mg PO TID PRN 03/26/19 [History] Avapritinib [Ayvakit] 1 tab PO ASDIRECTED 08/21/21 [History] Digoxin 08/21/21 [History] Digoxin 250 mcg PO ASDIRECTED 08/21/21 [History] Gabapentin [Neurontin] 100 mg PO 08/21/21 [History] Metoprolol Tartrate 25 mg PO 08/21/21 [History] Ondansetron [Zofran ODT] 4 mg PO ASDIRECTED 08/21/21 [History] Potassium Chloride [Klor-Con 10] 10 meq PO ASDIRECTED 08/21/21 [History] Regorafenib [Stivarga] 80 mg PO ASDIRECTED 08/21/21 [History] Sennosides/Docusate Sodium [Senna-S 8.6-50 mg Tablet] 1 tab PO ASDIRECTED 08/21/21 [History] Past Medical History HEENT History: Reports: Cataract, Impaired Vision Other HEENT History: WEARS CORRECTIVE LENSES Cardiovascular History: Reports: Afib, Blood Clots/VTE/DVT, Cardiomyopathy, Hea rt Failure, High Cholesterol, Hypertension, SOB on Exertion Respiratory History: Reports: Sleep Apnea, Other (See Below) Other Respiratory History: periods fast breathing happen randomly throughout the day and night. Gastrointestinal History: Reports: Other (See Below) Other Gastrointestinal History: GIST (gastrointestinal stromal tumor); Genitourinary History: Reports: BPH Musculoskeletal History: Reports: Arthritis Neurological History: Reports: Other (See Below) Other Neuro History: bleed in brain Psychiatric History: Reports: Anxiety Endocrine/Metabolic History: Reports: None Hematologic History: Reports: None Immunologic History: Reports: None Oncologic (Cancer) History: Reports: Esophageal, Other (See Below) Other Oncologic History: Gist Dermatologic History: Reports: None - Infectious Disease History Infectious Disease History: Reports: None - Past Surgical History HEENT Surgical History: Reports: Cataract Surgery, Tonsillectomy GI Surgical History: Reports: Colonoscopy, EGD, Other (See Below) Other GI Surgeries/Procedures: PARTIAL GASTRECTOMY FOR GIST Neurological Surgical History: Reports: C-Spine, Lumbar Spine Other Neurological Surgeries/Procedures: C-SPINE C5-6; LUMBAR SPINE SURGERY L4-5 Musculoskeletal Surgical History: Reports: Carpal Tunnel Other Musculoskeletal Surgeries/Procedures:: CARPAL TUNNEL RELEASE RIGHT Social & Family History - Family History Family Medical History: No Pertinent Family History - Tobacco Use Tobacco Use Status *Q: Unknown Ever Used Tobacco - Caffeine Use Caffeine Use: Reports: Coffee - Recreational Drug Use Recreational Drug Use: No - Living Situation & Occupation Living situation: Reports: Occupation: Retired ED ROS GENERAL - Review of Systems Review Of Systems: Comprehensive ROS is negative, except as noted in HPI. ED EXAM, GI/ABD - Physical Exam Exam: See Below Exam Limited By: No Limitations General Appearance: Alert Eyes: Bilateral: Normal Appearance, EOMI Throat/Mouth: Normal Inspection, Normal Lips, Normal Teeth, Normal Gums, Normal Oropharynx, Normal Voice, No Airway Compromise Head: Atraumatic, Normocephalic Neck: Normal Inspection, Supple, Non-Tender, Full Range of Motion Respiratory/Chest: No Respiratory Distress, Lungs Clear, Normal Breath Sounds, No Accessory Muscle Use, Chest Non-Tender Cardiovascular: Normal Peripheral Pulses, Regular Rate, Rhythm, No Edema, No Gallop, No JVD, No Murmur, No Rub GI/Abdominal Exam: Soft, Non-Tender (Male) Exam: Deferred Rectal (Males) Exam: Deferred Back Exam: Normal Inspection, Full Range of Motion Extremities: Normal Inspection, Normal Range of Motion, Non-Tender, Normal Capillary Refill, No Pedal Edema Neurological: Alert, Oriented, CN II-XII Intact, Normal Cognition, Normal Gait, Normal Reflexes, No Motor/Sensory Deficits Psychiatric: Normal Affect, Normal Mood Skin Exam: Warm, Dry, Intact #1 Interpretation EKG Date: 08/21/21 Time: 16:19 Rhythm: A-Fib [place]: Normal P-Wave: Absent QRS: Normal ST-T: Normal QT: Normal EKG Interpretation Comments: unchanged from previous Departure - Departure Disposition: Home, Self-Care 01 Clinical Impression: Pancreatic lesion GERD (gastroesophageal reflux disease) Qualifiers: Esophagitis presence: esophagitis presence not specified Qualified Code(s): K21.9 - Gastro-esophageal reflux disease without esophagitis - Discharge Information Forms: ED Department Discharge Additional Instructions: Prescription for carafate 10 mL four times daily as needed for symptomatic relief Follow up with your primary care provider in regards to the new pancreatic lesion seen on CT <Mary Ortiz - Last Filed: 08/21/21 19:38> Course - Vital Signs Last Recorded V/S: Last Vital Signs Temp 97.7 F 08/21/21 14:31 Pulse 101 H 08/21/21 14:31 Resp 20 08/21/21 14:31 BP 113/79 08/21/21 14:31 Pulse Ox 97 08/21/21 14:31 - Orders/Labs/Meds Orders: Active Orders 24 hr Category Date Time Status Peripheral IV Care [RC] . DIRECTED Care 08/21/21 15:43 Active Sodium Chloride 0.9% [Saline Flush] Med 08/21/21 15:42 Active 10 ml FLUSH ASDIRECTED PRN Isolation [COMM] Routine Oth 08/21/21 14:42 Active Peripheral IV Insertion Adult [OM.PC] Routine Oth 08/21/21 15:43 Ordered Medication Orders Sodium Chloride (Sodium Chloride 0.9% 10 Ml Syringe) 10 ml FLUSH ASDIRECTED PRN PRN Reason: Keep Vein Open Last Admin: 08/21/21 18:36 Dose: 10 ml Documented by: BRAYDEN Labs: Laboratory Tests 08/21/21 08/21/21 08/21/21 Range/Units 14:45 15:57 15:57 WBC 7.3 (5.0-10.0) 10^3/uL RBC 3.86 L (4.6-6.2) 10^6/uL Hgb 12.4 L D (14.0-18.0) g/dL Hct 36.8 L (40.0-54.0) % MCV 95.3 D (80-100) fL MCH 32.1 (27.0-34.0) pg MCHC 33.7 (33.0-35.0) g/dL Plt Count 322 D (150-450) 10^3/uL Neut % (Auto) 83.7 H (42.2-75.2) % Lymph % (Auto) 3.4 L (20.5-50.1) % Lares % (Auto) 12.3 H (2-8) % Eos % (Auto) 0.5 L (1.0-3.0) % Baso % (Auto) 0.1 (0.0-1.0) % Sodium 137 (136-145) mmol/L Potassium 4.4 (3.5-5.1) mmol/L Chloride 102 (98-107) mmol/L Carbon Dioxide 27 (21-32) mmol/L Anion Gap 12.4 (7-13) mEq/L BUN 18 (7-18) mg/dL Creatinine 1.27 (0.70-1.30) mg/dL Est Cr Clr Drug Dosing TNP Estimated GFR (MDRD) 55 BUN/Creatinine Ratio 14.2 (No establ ref range) Glucose 118 H (70-99) mg/dL Lactic Acid (0.4-2.0) mmol/L Calcium 8.3 L (8.5-10.1) mg/dL Phosphorus 3.0 (2.6-4.7) mg/dL Magnesium 2.1 (1.8-2.4) mg/dL Total Bilirubin 1.2 H (0.2-1.0) mg/dL AST 29 (15-37) U/L ALT 17 (16-63) U/L Alkaline Phosphatase 68 (46-116) U/L Troponin I High Sens 64 (<=76) pg/mL C-Reactive Protein 9.0 H (0.0-0.9) mg/dL Total Protein 6.3 L (6.4-8.2) g/dL Albumin 2.3 L (3.4-5.0) g/dL Globulin 4.0 Albumin/Globulin Ratio 0.58 Amylase 43 (25-115) U/L Lipase 56 L (73-393) U/L TSH, Ultra Sensitive 2.36 (0.36-3.74) uIU/mL Urine Color (YELLOW) Urine Appearance (CLEAR) Urine pH (5.0-9.0) Ur Specific [place] (1.005-1.030) Urine Protein (NEGATIVE) Urine Glucose (UA) (NEGATIVE) Urine Ketones (NEGATIVE) Urine Occult Blood (NEGATIVE) Urine Nitrite (NEGATIVE) Urine Bilirubin (NEGATIVE) Urine Urobilinogen (0.2-1.0) mg/dL Ur Leukocyte Esterase (NEGATIVE) U Hyaline Cast (Auto) Urine RBC (0-5) /HPF Urine WBC (0-5/HPF) /HPF Ur Epithelial Cells (NOT SEEN) /HPF Amorphous Sediment (NOT SEEN) /HPF Urine Bacteria (0-FEW/HPF) /HPF Urine Mucus (NOT SEEN) /LPF SARS-CoV-2 RNA (PROSPER) Negative (NEGATIVE) 08/21/21 08/21/21 Range/Units 15:57 16:10 WBC (5.0-10.0) 10^3/uL RBC (4.6-6.2) 10^6/uL Hgb (14.0-18.0) g/dL Hct (40.0-54.0) % MCV (80-100) fL MCH (27.0-34.0) pg MCHC (33.0-35.0) g/dL Plt Count (150-450) 10^3/uL Neut % (Auto) (42.2-75.2) % Lymph % (Auto) (20.5-50.1) % Lares % (Auto) (2-8) % Eos % (Auto) (1.0-3.0) % Baso % (Auto) (0.0-1.0) % Sodium (136-145) mmol/L Potassium (3.5-5.1) mmol/L Chloride (98-107) mmol/L Carbon Dioxide (21-32) mmol/L Anion Gap (7-13) mEq/L BUN (7-18) mg/dL Creatinine (0.70-1.30) mg/dL Est Cr Clr Drug Dosing Estimated GFR (MDRD) BUN/Creatinine Ratio (No establ ref range) Glucose (70-99) mg/dL Lactic Acid 1.6 (0.4-2.0) mmol/L Calcium (8.5-10.1) mg/dL Phosphorus (2.6-4.7) mg/dL Magnesium (1.8-2.4) mg/dL Total Bilirubin (0.2-1.0) mg/dL AST (15-37) U/L ALT (16-63) U/L Alkaline Phosphatase (46-116) U/L Troponin I High Sens (<=76) pg/mL C-Reactive Protein (0.0-0.9) mg/dL Total Protein (6.4-8.2) g/dL Albumin (3.4-5.0) g/dL Globulin Albumin/Globulin Ratio Amylase (25-115) U/L Lipase (73-393) U/L TSH, Ultra Sensitive (0.36-3.74) uIU/mL Urine Color Dark yellow (YELLOW) Urine Appearance Slightly cloudy (CLEAR) Urine pH 5.5 (5.0-9.0) Ur Specific [place] >= 1.030 (1.005-1.030) Urine Protein 30 H (NEGATIVE) Urine Glucose (UA) Negative (NEGATIVE) Urine Ketones 15 H (NEGATIVE) Urine Occult Blood Negative (NEGATIVE) Urine Nitrite Negative (NEGATIVE) Urine Bilirubin Moderate H (NEGATIVE) Urine Urobilinogen 1.0 (0.2-1.0) mg/dL Ur Leukocyte Esterase Negative (NEGATIVE) U Hyaline Cast (Auto) Few Urine RBC 0-5 (0-5) /HPF Urine WBC 0-5 (0-5/HPF) /HPF Ur Epithelial Cells Few (NOT SEEN) /HPF Amorphous Sediment Few (NOT SEEN) /HPF Urine Bacteria Rare (0-FEW/HPF) /HPF Urine Mucus Moderate H (NOT SEEN) /LPF SARS-CoV-2 RNA (PROSPER) (NEGATIVE) Meds: Medications Generic Name Dose Route Start Last Admin Trade Name Margi PRN Reason Stop Dose Admin Sodium Chloride 10 ml 08/21/21 15:42 08/21/21 18:36 Sodium Chloride 0.9% 10 Ml Syringe FLUSH 10 ml ASDIRECTED PRN Administration Keep Vein Open Discontinued Medications Generic Name Dose Route Start Last Admin Trade Name Margi PRN Reason Stop Dose Admin Al Hydroxide/Mg Hydroxide 30 ml 08/21/21 16:50 08/21/21 17:07 Gi Cocktail Oral Solution 30 Ml PO 08/21/21 16:51 30 ml ONETIME ONE Administration Aspirin 324 mg 08/21/21 17:32 08/21/21 18:42 Aspirin 81 Mg Tab.Chew PO 08/21/21 17:33 Not Given ONETIME ONE Iopamidol 100 ml 08/21/21 16:49 08/21/21 17:01 Iopamidol 612 Mg/Ml 100 Ml Bottle IVPUSH 08/21/21 16:50 100 ml ONETIME ONE Administration Nitroglycerin 0.4 mg 08/21/21 17:33 08/21/21 18:43 Nitroglycerin 0.4 Mg Tab.Sl SL 08/21/21 17:34 Not Given ONETIME ONE Ondansetron HCl 4 mg 08/21/21 15:53 08/21/21 16:35 Ondansetron 4 Mg Tab.Dis PO 08/21/21 15:54 4 mg ONETIME ONE Administration - Radiology Interpretation Free Text/Narrative:: CT abdomen/Pelvis: IMPRESSION: 1. New 1.8 cm x 1.7 cm lesion in the pancreatic tail which is incompletely characterized in this examination. Consider correlation with pancreatic protocol MRI if clinically warranted. 2. Anasarca. 3. Incidental findings as detailed above. - Re-Assessments/Exams Free Text/Narrative Re-Assessment/Exam: Discussed lab and CT results with the pt and his . 08/21/21 19:37 Departure - Departure Time of Disposition: 19:35 Condition: Fair - Discharge Information *PRESCRIPTION DRUG MONITORING PROGRAM REVIEWED*: Not Applicable *COPY OF PRESCRIPTION DRUG MONITORING REPORT IN PATIENT [place]: Not Applicable Sepsis Event Note (ED) - Focused Exam Vital Signs: Vital Signs Temp Pulse Resp BP Pulse Ox 08/21/21 14:31 97.7 F 101 H 20 113/79 97
[2021-08-21] MEDS ORDERED: Ondansetron 4 MG Tab.DIS PO ONE (15:53)
[2021-08-21 16:32] LABS: ANION GAP 12.4 mEq/L (7-13); CHLORIDE,CL 102 mmol/L (98-107); SODIUM,NA 137 mmol/L (136-145)
[2021-08-21] MEDS ORDERED: Iopamidol 612 MG/ML 100 ML Bottle IVPUSH ONE (16:49)
[2021-08-21] MEDS ORDERED: GI Cocktail Oral Solution 30 ML PO ONE (16:50)
[2021-08-21] MEDS ORDERED: Aspirin 81 MG Tab.Chew PO ONE (17:32)
[2021-08-21] MEDS ORDERED: Nitroglycerin 0.4 MG Tab.SL SL ONE (17:33)
--- NOTE | 2021-08-21 19:08 | CT ---
PROCEDURE INFORMATION: Exam: CT Abdomen And Pelvis With Contrast Exam date and time: 08/21/2021 6:12 PM Age: 80 years old Clinical indication: Other: Pain--gist tumor; Additional info: Abd pn TECHNIQUE: Imaging protocol: Computed tomography of the abdomen and pelvis with contrast. Radiation optimization: All CT scans at this facility use at least one of these dose optimization techniques: automated exposure control; mA and/or kV adjustment per patient size (includes targeted exams where dose is matched to clinical indication); or iterative reconstruction. Contrast material: [id number]; Contrast volume: 75 ml; Contrast route: INTRAVENOUS (IV); COMPARISON: CT Abdomen Pelvis wo Cont 12/22/2020 11:19 PM FINDINGS: Lungs: Atelectasis in the left lung base and in the right lung base. Lung bases are otherwise clear. Pleural spaces: There is a large layering right pleural effusion. There is a large layering left pleural effusion present. Mediastinal space: A large hiatal hernia is present. Liver: Normal. No mass. Gallbladder and bile ducts: Normal. No calcified stones. No ductal dilation. Pancreas: Stable 7 mm fat density lesion in the pancreatic tail on image 85 series 2, favoring a benign lipoma. New 1.8 cm x 1.7 cm hypodense lesion in the pancreatic tail, incompletely characterized in this examination (image 78 series 2 and image 37 series 3). The pancreas is otherwise unremarkable. Spleen: Normal. No splenomegaly. Adrenal glands: There is diffuse bilateral adrenal enlargement, nonspecific but most likely related to acute illness or senile in etiology. Kidneys and ureters: Subcentimeter left renal hypodense lesions are too small to characterize but most probably benign representing cysts. The kidneys are otherwise unremarkable. The ureters are normal. Stomach and bowel: Bowel anastomosis in the left hemiabdomen without discrete complications. No bowel obstruction or significant bowel wall thickening. Appendix: No evidence of appendicitis. Intraperitoneal space: There is a moderate amount of free intraperitoneal fluid present. There is no free intraperitoneal air. Vasculature: The vasculature demonstrates diffuse mild atherosclerotic calcification. Lymph nodes: Unremarkable. No enlarged lymph nodes. Urinary bladder: The bladder is decompressed. Reproductive: The prostate demonstrates marked nonspecific enlargement. The seminal vesicles are normal. Bones/joints: No acute skeletal pathology. Moderate multilevel degenerative changes of the spine, as manifested by multilevel anterior osteophytes and multilevel decrease in intervertebral disc space. Soft tissues: Diffuse body wall edema. IMPRESSION: 1. New 1.8 cm x 1.7 cm lesion in the pancreatic tail which is incompletely characterized in this examination. Consider correlation with pancreatic protocol MRI if clinically warranted. 2. Anasarca. 3. Incidental findings as detailed above. COMMENTS: Consistent with the [employer]'s Incidental Findings Committee white paper (J Am Zohra Radiol 2018): Any incidental renal lesion less than 1 cm or classified as too small to characterize, or any incidental cystic renal lesion characterized as simple-appearing, is likely benign. No follow-up imaging is recommended for these lesions per consensus recommendations based on imaging criteria.
== END 2021-08-21 20:09 | disposition home or self-care (01) ==
LOC: DL.ED 14:17
DX: K21.9 Gastro-esophageal reflux disease without esophagitis (principal); L98.9 Disorder of the skin and subcutaneous tissue, unspecified; I11.0 Hypertensive heart disease with heart failure; I50.9 Heart failure, unspecified; E78.00 Pure hypercholesterolemia, unspecified; I48.91 Unspecified atrial fibrillation; Z79.899 Other long term (current) drug therapy; Z86.718 Personal history of other venous thrombosis and embolism; Z20.822 Contact with and (suspected) exposure to COVID-19
CPT/HCPCS: 36415; 74177; 80053; 81001; 82150; 82272; 83605; 83690; 83735; 84100; 84443; 84484; 85025; 86140; 87804; 93005; 99284; A9270; Q9967; U0002